=== PATIENT | female | born 1945 | race Caucasian/White ===

== ENCOUNTER 2016-07-19 05:37 | Outpatient (CLI) | payer MEDICARE, OTHER ==
[~2016-07-19] VITALS: Ht 154.9 cm; Wt 71.2 kg
[~2016-07-19 05:37] MED LIST: ACET-2267 PO; ACHD5005 PO; ALEN70TA47 PO; ALN10T PO; ASPI-892 PO; CALC-6 PO; CALC600T PO; CHOL5000 PO; CLPD75T PO; CPR500T PO; CYAN10006 PO; ERGO400C PO; ESTR0.5T VG; EZET1TAB44 PO; GABA-488 PO; INDO25CA PO; LEVO50TA6 PO; LVT.05T PO; MELO15TA39 PO; OMEG1CAP74 PO; PNT40TEC PO; SIMV40TA4 PO
--- OUTSIDE RECORDS SUMMARY | 2016-07-19 05:40 | XMS REPORT | Continuity of Care Document ---
Author Author [facility] Organization [facility] Address Unknown Phone Unavailable Care Team Providers Care Manager Home Name Role Phone PCP Unavailable Source Comments Some departments are not documenting in the electronic medical record. If you do not see the information that you expected, contact Release of Information in the Health Information Management department at [phone] for further assistance in locating additional records.[facility] Active Allergies and Adverse Reactions Not on File Current Medications Not on file Active Problems Not on file Social History Tobacco Use Types Packs/Day Years Used Date Never Assessed Plan of Care Health Maintenance Due Date Last Done Comments Physical (Comprehensive) 1952 Exam Pertussis Vaccine 1956 Tetanus Vaccine 1962 Breast Cancer Screening 1985 Colorectal Cancer 1995 Screening Shingles Vaccine 2005 Osteoporosis Screening 2010 Prevnar/Pneumovax (#1) 2010 Influenza Vaccine 02/15/2016 Results from Last 3 Months Not on file
[2016-07-19] MEDS ORDERED: VITA400T9 PO (10:09)
[2016-07-19] MEDS ORDERED: DIPH25CA79 PO (10:09)
[2016-07-19] MEDS ORDERED: GABA-490 PO (10:09)
[2016-07-19] MEDS ORDERED: CYCL10TA9 PO (10:13)
== END 2016-07-19 10:14 ==
LOC: PREOP 05:37
PROVIDERS: ATTEND Surgery Pediatric Surgery
DX: Z01.818 Encounter for other preprocedural examination (principal)

== ENCOUNTER 2016-07-24 09:45 | Day surgery (SDC) | payer MEDICARE, OTHER ==
[~2016-07-24] VITALS: Ht 154.9 cm; Wt 71.2 kg
[~2016-07-24 09:45] MED LIST changes: +CYCL10TA9 PO; +DIPH25CA79 PO; +GABA-490 PO; +VITA400T9 PO
--- OUTSIDE RECORDS SUMMARY | 2016-07-24 09:50 | XMS REPORT | Continuity of Care Document ---
Author Author [facility] Organization [facility] Address Unknown Phone Unavailable Care Team Providers Care Seed Sales Manager Name Role Phone PCP Unavailable Source Comments Some departments are not documenting in the electronic medical record. If you do not see the information that you expected, contact Release of Information in the Health Information Management department at [phone] for further assistance in locating additional records.[facility] Active Allergies and Adverse Reactions Not [...]
--- OUTSIDE RECORDS SUMMARY | 2016-07-24 09:50 | XMS REPORT | Continuity of Care Document ---
Author Author [facility] Organization [facility] Address Unknown Phone Unavailable Care Team Providers Care Script Girl Name Role Phone PCP Unavailable Source Comments Some departments are not documenting in the electronic medical record. If you do not see the information that you expected, contact Release of Information in the Health Information Management department at [phone] for further assistance in locating additional records.[facility] Active Allergies and Adverse Reactions Not [...]
[2016-07-24] MEDS ORDERED: LIDOCAINE JELLY 2% (XYLOCAINE) 5 ML TUBE MM PRN (10:00)
[2016-07-24] MEDS ORDERED: NALOXONE 0.4 MG/ML 1 ML (NARCAN) VIAL IVP PRN (10:00)
[2016-07-24] MEDS ORDERED: NS IV 500 ML 500 ML IV SCH (10:00)
[2016-07-24] MEDS ORDERED: FLUMAZENIL (ROMAZICON) 0.1 MG/ML 5 ML VIAL INJ PRN (10:00)
[2016-07-24] MEDS ORDERED: NS IV 500 ML 500 ML ONE (10:00)
[2016-07-24 10:22] VITALS: BP 133/74
--- NOTE | 2016-07-24 10:26 | Conscious Sedation/ASA ---
Conscious Sedation Pre-Proced Time Reviewed: 10:10 ASA Class: 2 Airway Mallampati Classification: ([place] appropriate class) I. II. III, IV Lungs Heart ASA score ASA 1: a normal healthy patient ASA 2: a patient with a mild systemic disease (mid diabetes, controlled hypertension, obesity ASA 3: a patient with a severe systemic disease that limits activity (angina , COPD, prior Myocardial infarction) ASA 4: a patient with an incapacitating disease that is a constant threat to life (CHF, renal failure) ASA 5: a moribund patient not expected to survive 24 hrs. (ruptured aneurysm) ASA 6: a declared brain patient whose organs are being harvested. For emergent operations, add the letter E after the classification Grade 2 Sedation Plan: Analgesia, Amnesia, Plan communicated to team members, Discussed options with patient/fam, Discussed risks with patient/fam Note The patient is an appropriate candidate to undergo the planned procedure, sedation, and anesthesia. The patient immediately re-assessed prior to indication. JOHNNY VALLEJO MD Jul 24, 2016 10:26 am
--- NOTE | 2016-07-24 10:27 | Progress Note-Pre Operative ---
Pre-Operative Progress Note H&P Reviewed The H&P was reviewed, patient examined and no changes noted. Date H&P Reviewed: Jul 24, 2016 Time H&P Reviewed: 10:10 Pre-Operative Diagnosis: screening colonoscopy JOHNNY VALLEJO MD Jul 24, 2016 10:27 am
[2016-07-24] MEDS ORDERED: morphine INJ 10 MG/ML 1ML (SYR OR VIAL) IV PRN (10:30)
[2016-07-24] MEDS ORDERED: ONDANSETRON 4 MG/2 ML (SDV) Z0FRAN IV PRN (10:30)
[2016-07-24] MEDS ORDERED: HYDROcodone/APAP 5 MG/325 MG (LORTAB) TAB PO PRN (10:30)
[2016-07-24] MEDS ORDERED: ACETAMINOPHEN 325 MG TABLET/CAPLET (TYLENOL) PO PRN (10:30)
[2016-07-24] MEDS ORDERED: fentaNYL INJECTION 100 MCG/2 ML AMP ONE ×2 (10:37→10:38)
[2016-07-24] MEDS ORDERED: MIDAZOLAM 2 MG/2 ML (VERSED) VIAL ONE ×3 (10:37)
[2016-07-24] MEDS ORDERED: LIDOCAINE JELLY 2% (XYLOCAINE) 5 ML TUBE ONE (10:38)
[2016-07-24] MEDS: fentaNYL INJECTION 100 MCG/2 ML AMP IVP PRN ×4 (11:05→11:30)
[2016-07-24] MEDS: MIDAZOLAM 2 MG/2 ML (VERSED) VIAL IVP PRN ×3 (11:07→11:24)
--- NOTE | 2016-07-24 11:49 | Progress Note-Post Operative ---
Post-Operative Progess Note Pre-Operative Diagnosis screening colonoscopy Post-Operative Diagnosis chronic stage 2 ext and int hemorrhoids, mild-moderate sigmoid diverticulosis. Post-Op Procedure Note Date of Procedure: Jul 24, 2016 Name of Procedure: Colonoscopy Anesthesia Type CS Estimated blood loss (mL): JOHNNY Navarro MD Jul 24, 2016 11:48 am
[2016-07-24 11:50] VITALS: BP 130/73
--- NOTE | 2016-07-24 11:50 | Discharge Inst-Surgical ---
D/C Lap Instructions-YONI Follow Up 10 years Activity as tolerated High Fiber Diet 25g or more per day Avoid Alcohol, Caffeine, Spicy Dooms and Acid foods. Drink 64 fluid oz or more of fluids per day. Symptoms to Report: Fever over 101 degree F, Nausea/Vomiting If any problems/questions: Contact your physician or go to Emergency Room JOHNNY VALLEJO MD Jul 24, 2016 11:50 am
[2016-07-24 12:20] VITALS: BP 112/64
[2016-07-24 12:45] VITALS: BP 112/64
--- NOTE | 2016-07-25 12:42 | OPERATIVE REPORT ---
PROCEDURE PHYSICIAN: JOHNNY CURRAN DATE OF PROCEDURE: 07/24/2016 ATTENDING PRIMARY CARE PHYSICIAN: Dr. Rodriguez PREOPERATIVE DIAGNOSIS: Screening colonoscopy. POSTOPERATIVE DIAGNOSES: 1. Chronic, stage II external and internal hemorrhoids. 2. Mild to moderate sigmoid diverticulosis. PROCEDURE: Colonoscopy. SURGEON: Dr. Curran. ANESTHESIA: Conscious sedation. ESTIMATED BLOOD LOSS: Minimal. FINDINGS: 1. Chronic, stage II external and internal hemorrhoids, not actively edematous or inflamed and no bleeding. 2. There was a mild to moderate sigmoid diverticulosis and no mucosal inflammatory changes to indicate any active diverticulitis. 3. The remainder of the colon was normal. There were no polyps or any neoplasms identified. DISPOSITION: The patient tolerated the procedure well. Ms. Sabina Bustamante is a 71-year-old female in need of a screening colonoscopy. She reports her last colonoscopy was around 2004 which was found to have mild diverticulosis; however, she does not remember any other abnormalities. Upon further questioning, she does report a long-standing history of constipation, however, does not report any issues with sharp left lower abdominal quadrant pain. She also does not report any red blood per rectum or any dark tarry stools. She does report a remote family history of colon cancer with her paternal grandfather having the disease. She has also been seen recently for recurrent cystitis. PROCEDURE: The patient was brought to the endoscopy suite, laid in left lateral decubitus position. After adequate IV pain and sedative medications and conscious sedation anesthesia, a digital rectal examination was performed. Chronic mild stage II external and internal hemorrhoids were identified, which were not actively edematous or inflamed and no bleeding. Normal sphincter tone was felt and there were no palpable masses. The endoscope was then intubated into the anus and the rectum gently insufflated. The endoscope was then advanced through the valves of [place] the rectum with no polyps or any neoplasms identified. The endoscope was then advanced through the sigmoid colon where a mild to moderate sigmoid diverticulosis identified. There were no mucosal inflammatory changes to indicate any active diverticulitis. The endoscope was then advanced through the descending, transverse, and ascending colon to the cecum. These segments were normal. There were no polyps or any or any neoplasms identified throughout the colon or rectum. The endoscope was then slowly withdrawn while taking a second look and suctioning of residual air with no additional findings. The patient tolerated the procedure well. We will have her continue with medical management with a high fiber diet with least 25 to 30 grams of fiber per day, as well as at least 64 fluid ounces of water daily to promote soft stools on a daily basis. She does not need another colonoscopy for another 10 years; however, sooner if any problems arise. Job ID: [id number] Dictated Date: 07/24/2016 11:53:48 Labor Economist Date: 07/25/2016 12:35:53 / henry
== END 2016-07-24 12:45 | disposition home or self-care (01) ==
LOC: ENDO 09:45
PROVIDERS: ATTEND Surgery Pediatric Surgery
DX: Z12.11 Encounter for screening for malignant neoplasm of colon (principal); K57.90 Diverticulosis of intestine, part unspecified, without perforation or abscess without bleeding; K64.1 Second degree hemorrhoids; Z80.0 Family history of malignant neoplasm of digestive organs

== ENCOUNTER 2016-07-28 14:58 | Emergency (ER) | payer MEDICARE, OTHER ==
[~2016-07-28] VITALS: Ht 154.9 cm; Wt 71.2 kg
--- OUTSIDE RECORDS SUMMARY | 2016-07-28 15:03 | XMS REPORT | Continuity of Care Document ---
Author Author [facility] Organization [facility] Address Unknown Phone Unavailable Care Team Providers Care High Tension Tester Name Role Phone PCP Unavailable Source Comments Some departments are not documenting in the electronic medical record. If you do not see the information that you expected, contact Release of Information in the Health Information Management department at [phone] for further assistance in locating additional records.[facility] Active Allergies and Adverse Reactions Not [...]
[2016-07-28] MEDS ORDERED: HYDR-3812 (15:09)
[2016-07-28] MEDS ORDERED: PRD10T (15:09)
[2016-07-28] MEDS ORDERED: KETOROLAC 30 MG/ML VIAL IVP ONE (15:15)
[2016-07-28 15:32] LABS: BASOPHILS # (AUTO) 0.1 10^3/uL (0.0-0.1); BASOPHILS % (AUTO) 1 % (0-10); EOSINOPHILS # (AUTO) 0.3 10^3/uL (0.0-0.3); EOSINOPHILS % (AUTO) 3 % (0-10); LYMPHOCYTES # (AUTO) 3.3 X 10^3 (1.0-4.0); LYMPHOCYTES % (AUTO) 30 % (12-44); MEAN CORPUSCULAR HEMOGLOBIN 29 PG (25-34); MEAN CORPUSCULAR HGB CONC 33 G/DL (32-36); MEAN CORPUSCULAR VOLUME 88 FL (80-99); MEAN PLATELET VOLUME 10.3 FL (7.4-10.4); MONOCYTES # (AUTO) 0.9 X 10^3 (0.0-1.0); MONOCYTES % (AUTO) 8 % (0-12); NEUTROPHILS # (AUTO) 6.4 X 10^3 (1.8-7.8); NEUTROPHILS % (AUTO) 59 % (42-75); PLATELET COUNT 328 10^3/uL (130-400); RED BLOOD COUNT 5.17 10^6/uL (4.35-5.85); RED CELL DISTRIBUTION WIDTH 13.2 % (10.0-14.5); WHITE BLOOD COUNT 10.9 10^3/uL (4.3-11.0)
--- NOTE | 2016-07-28 15:40 | ED GU-Female ---
General Chief Complaint: Abdominal/GI Problems Stated Complaint: R SIDE PAIN, BY KIDNEYS Nursing Triage Note: Patient reports R flank/kidney pain. states was evaluated by PCP on the and was told it was skeletal problem. patient reports was given prednisone and lortab. patient reports pain hasn't improved and has a history of kidney stones. patient also reports having a colonoscopy on the of this month. patient denies n/v/d. Nursing Sepsis Screen: No Definite Risk Source: patient Exam Limitations: no limitations History of Present Illness Time seen by provider: 15:39 Initial Comments To ER with reports of right flank pain for about a week. She saw her primary care provider Dr. Monsalve on July 25 for this pain and was told it was likely degenerative disc disease. She was given hydrocodone and prednisone without improvement in symptoms. She does report that she passed a kidney stone on the right side about a month ago. She reports chills but no measured fevers. She denies nausea vomiting or diarrhea. Pain improves with cold application and worsens with heat application Timing/Duration: just prior to arrival Severity/Quality: moderate Location: unknown Radiation: none Prior Genitourinary Problems: none Associated Symptoms: denies symptoms nausea/vomiting Allergies and Home Medications Allergies Coded Allergies: mercury (elemental) (Verified Allergy, Unknown, ALLERGIC TO MERCURY EAR DROPS, 11/14/05) Home Medications Acetaminophen 500 Mg Tablet 500-1,000 MG PO Q4H PRN PRN PAIN (Reported) Aspirin 81 Mg Tabec 81 MG PO HS (Reported) Calcium Carbonate/Vitamin D3 1 Each Tablet 1 TAB PO HS (Reported) Cholecalciferol (Vitamin D3) 5,000 Unit Capsule 5,000 UNIT PO MONDAYS AND FRIDAYS (Reported) Cyclobenzaprine HCl 10 Mg Tablet 10 MG PO TID PRN PRN MUSCLE SPASMS (Reported) Diphenhydramine HCl 25 Mg Capsule 25 MG PO HS (Reported) Estradiol 0.5 Mg Tablet 0.5 MG VG WEEKLY ON FRIDAY (Reported) Gabapentin 400 Mg Capsule 800 MG PO TID PRN PRN nerve pain (Reported) take 2 (400mg) tab Hydrocodone/Acetaminophen 1 Each Tablet #60 (Reported) Levothyroxine Sodium 50 Mcg Tablet 50 MCG PO DAILY (Reported) Prednisone 10 Mg Tab #9 (Reported) Simvastatin 40 Mg Tablet 40 MG PO HS (Reported) Constitutional: see HPINo chills, diaphoresisNo fever EENTM: see HPI Respiratory: see HPINo cough Cardiovascular: no symptoms reported Genitourinary: see HPI dysuria flank pain Musculoskeletal: no symptoms reported Skin: no symptoms reported Psychiatric/Neurological: No Symptoms Reported Endocrine: No Symptoms Reported Past Psehgmz-Xjxshi-Wzryvz Hx Patient Social History Alcohol Use: Denies Use Recreational Drug Use: No Smoking Status: Never a Smoker Recent Foreign Travel: No Contact w/Someone Who Travel: No Recent Infectious Disease Expo: No Recent Hopitalizations: No Immunizations Up To Date Tetanus Booster (TDap): Less than 5yrs Date of Pneumonia Vaccine: Nov 15, 2013 Date of Influenza Vaccine: Mar 16, 2016 Seasonal Allergies Seasonal Allergies: Yes Surgeries HX Surgeries: Yes (bowel obstruction, bilat hip replaced, ) Surgeries: Abdominal, Appendectomy, Coronary Stent, Gallbladder, Joint Replacement, Tonsillectomy Respiratory Hx Respiratory Disorders: No Cardiovascular Hx Cardiac Disorders: Yes (stent x1) Cardiac Disorders: Coronary Artery Disease, High Cholesterol Neurological Hx Neurological Disorders: Yes Neurological Disorders: Neuropathy Reproductive System Hx Reproductive Disorders: No Sexually Transmitted Disease: No HIV/AIDS: No Female Reproductive Disorders: Denies Genitourinary Hx Genitourinary Disorders: Yes Genitourinary Disorders: Kidney Infection, Kidney Stones, UTI-Chronic Gastrointestinal Hx Gastrointestinal Disorders: Yes Gastrointestinal Disorders: Gastroesophageal Reflux, Diverticulosis Musculoskeletal Hx Musculoskeletal Disorders: Yes Musculoskeletal Disorders: Arthritis, Chronic Back Pain Endocrine Hx Endocrine Disorders: Yes Endocrine Disorders: Hypothyroidsim HEENT HX ENT Disorders: No HEENT Disorders: Cataract Cancer Hx Cancer: No Psychosocial Hx Psychiatric Problems: No Integumentary HX Skin/Integumentary Disorder: No Blood Transfusions Hx Blood Disorders: No Family Medical History Significant Family History: Heart Disease, Renal Disease Physical Exam Vital Signs Vital Sign - Last 12Hours 07/28/16 15:03 Temp 97.8 Pulse 81 Resp 18 B/P 146/83 Pulse Ox 95 O2 Delivery Room Air Capillary Refill : Less Than 3 Seconds General Appearance: WD/WN no apparent distress HEENT: PERRL/EOMI normal ENT inspection Neck: non-tender full range of motion Respiratory: no respiratory distress no accessory muscle use Gastrointestinal: normal bowel sounds non tender soft Extremities: normal range of motion non-tender Neurologic/Psychiatric: alert normal mood/affect oriented x 3 Skin: normal color warm/dry Progress/Results/Core Measures Results/Orders Lab Results Laboratory Tests Test 07/28/16 15:00 07/28/16 15:55 Range/Units Anion Gap 14 5-14 MMOL/L BUN/Creatinine Ratio 20 Basophils # (Auto) 0.1 0.0-0.1 10^3/uL Basophils (%) (Auto) 1 0-10 % Blood Urea Nitrogen 19 H 7-18 MG/DL Calcium Level 9.5 8.5-10.1 MG/DL Carbon Dioxide Level 23 21-32 MMOL/L Chloride Level 104 98-107 MMOL/L Creatinine 0.96 0.60-1.30 MG/DL Eosinophils # (Auto) 0.3 0.0-0.3 10^3/uL Eosinophils (%) (Auto) 3 0-10 % Estimat Glomerular Filtration Rate 57 Glucose Level 93 70-105 MG/DL Hematocrit 45 35-52 % Hemoglobin 14.8 11.5-16.0 G/DL Lymphocytes # (Auto) 3.3 1.0-4.0 X 10^3 Lymphocytes (%) (Auto) 30 12-44 % Mean Corpuscular Hemoglobin 29 25-34 PG Mean Corpuscular Hemoglobin Concent 33 32-36 G/DL Mean Corpuscular Volume 88 80-99 FL Mean Platelet Volume 10.3 7.4-10.4 FL Monocytes # (Auto) 0.9 0.0-1.0 X 10^3 Monocytes (%) (Auto) 8 0-12 % Neutrophils # (Auto) 6.4 1.8-7.8 X 10^3 Neutrophils (%) (Auto) 59 42-75 % Platelet Count 328 130-400 10^3/uL Potassium Level 3.5 L 3.6-5.0 MMOL/L Red Blood Count 5.17 4.35-5.85 10^6/uL Red Cell Distribution Width 13.2 10.0-14.5 % Sodium Level 141 135-145 MMOL/L White Blood Count 10.9 4.3-11.0 10^3/uL Urine Bacteria FEW H /HPF Urine Bilirubin NEGATIVE NEGATIVE Urine Casts NONE /LPF Urine Clarity SLIGHTLY CLOUDY Urine Color YELLOW Urine Crystals NONE /LPF Urine Culture Indicated YES Urine Glucose (UA) NEGATIVE NEGATIVE Urine Ketones NEGATIVE NEGATIVE Urine Leukocyte Esterase 3+ H NEGATIVE Urine Mucus NEGATIVE /LPF Urine Nitrite NEGATIVE NEGATIVE Urine Protein 1+ H NEGATIVE Urine RBC NONE /HPF Urine RBC (Auto) 3+ H NEGATIVE Urine Specific [place] 1.025 H 1.016-1.022 Urine Squamous Epithelial Cells 10-25 H /HPF Urine Urobilinogen NORMAL NORMAL MG/DL Urine WBC 5-10 H /HPF Urine pH 5 5-9 My Orders Orders-SHLOMO HANSEN APRN Ua Culture If Indicated (07/28/16 15:10) Cbc With Automated Diff (07/28/16 15:10) Basic Metabolic Panel (07/28/16 15:10) Ct Abd/Pelvis Wo(Kidney Stone) (07/28/16 15:10) Ketorolac Injection (Toradol Injection) (07/28/16 15:15) Urine Culture (07/28/16 15:55) Medications Given in ED Current Medications Medications Dose Ordered Sig/Coty Route Start Time Stop Time Status Last Admin Dose Admin Ketorolac Tromethamine 30 mg ONCE ONCE IVP 07/28/16 15:15 07/28/16 15:16 DC 07/28/16 15:21 30 MG Vital Signs/I&O Vital Sign - Last 12Hours 07/28/16 15:03 Temp 97.8 Pulse 81 Resp 18 B/P 146/83 Pulse Ox 95 O2 Delivery Room Air Blood Pressure Mean: 104 Diagnostic Imaging Diagonstic Imaging: CT Comments NAME: PEDRO CORRAL [facility] REC#: [id number] PT STATUS: REG ER : 1945 PHYSICIAN: SHLOMO HANSEN APRN ADMIT DATE: 07/28/16/ER Draft Date of Exam:07/28/16 CT ABD/PELVIS WO(KIDNEY STONE) EXAMINATION: CT abdomen and pelvis without contrast, 07/28/2016. TECHNIQUE: Multiple contiguous axial images were obtained through the abdomen and pelvis without the use of intravenous contrast. INDICATION: Right flank pain, history of stones, hematuria for a month. COMPARISON: 11/15/2014. FINDINGS: No acute process is seen within the visualized lung bases. The osseous structures demonstrate chronic degenerative findings. Postoperative change noted in both hips. The streak artifact from the hip prostheses causes marked limitation in evaluation of the pelvis, and a distal ureteral stone would be difficult to completely exclude. No nephrolithiasis is seen in either kidney with no hydronephrosis. Visualized ureters on both sides demonstrate no evidence for stones; however, the distal ureters are not well seen. There are findings of constipation. Diverticular disease also noted in the sigmoid colon. No free air or fluid seen in the abdomen. No free fluid seen in the visualized aspects of the pelvis. There is postoperative change in the right lower quadrant perhaps due to previous appendectomy. Appendix is not seen. There is no inflammatory change in the right lower quadrant. There is atherosclerotic disease. IMPRESSION: 1. Incidental findings as discussed above with no acute process visualized. The distal ureters, however, cannot be seen; see above discussion. No hydronephrosis, however, is appreciated. If the hematuria persists, followup imaging of the kidneys with a dedicated kidney protocol CT with and without contrast would be recommended on a nonemergent basis. Dictated on workstation # [id number] Dict: 07/28/16 1536 Trans: 07/28/16 [id number] [id number] Interpreted by: EKATERINA MEDRANO MD Electronically signed by: Departure Impression Impression: Primary Impression: Right flank pain Additional Impression: Urinary tract infection Disposition: 01 HOME, SELF-CARE Condition: Stable Departure-Patient Inst. Decision time for Depature: 16:16 Referrals: CAITLYN MONSALVE DO (PCP/Family) Primary Care Physician Patient Instructions: Urinary Tract Infection, Adult (DC) Add. Discharge Instructions: 1. Antibiotic as directed 2. Return to ER for any worsening 3. See Dr. Monsalve later this week All discharge instructions reviewed with patient and/or family. Voiced understanding. Scripts Ciprofloxacin HCl (Cipro)500 Mg [id number] Mg PO BID #10 TAB Prov:SHLOMO HANSEN APRN 07/28/16 Copy Copies To 1: CAITLYN MONSALVE PETER J APRN Jul 28, 2016 15:40
[2016-07-28 15:48] LABS: CALCIUM 9.5 MG/DL (8.5-10.1); CREATININE SERUM 0.96 MG/DL (0.60-1.30); POTASSIUM 3.5 MMOL/L (3.6-5.0)
--- NOTE | 2016-07-28 15:48 | Diagnostic Imaging Report ---
EXAMINATION: CT abdomen and pelvis without contrast, 07/28/2016. TECHNIQUE: Multiple contiguous axial images were obtained through the abdomen and pelvis without the use of intravenous contrast. INDICATION: Right flank pain, history of stones, hematuria for a month. COMPARISON: 11/15/2014. FINDINGS: No acute process is seen within the visualized lung bases. The osseous structures demonstrate chronic degenerative findings. Postoperative change noted in both hips. The streak artifact from the hip prostheses causes marked limitation in evaluation of the pelvis, and a distal ureteral stone would be difficult to completely exclude. No nephrolithiasis is seen in either kidney with no hydronephrosis. Visualized ureters on both sides demonstrate no evidence for stones; however, the distal ureters are not well seen. There are findings of constipation. Diverticular disease also noted in the sigmoid colon. No free air or fluid seen in the abdomen. No free fluid seen in the visualized aspects of the pelvis. There is postoperative change in the right lower quadrant perhaps due to previous appendectomy. Appendix is not seen. There is no inflammatory change in the right lower quadrant. There is atherosclerotic disease. IMPRESSION: 1. Incidental findings as discussed above with no acute process visualized. The distal ureters, however, cannot be seen; see above discussion. No hydronephrosis, however, is appreciated. If the hematuria persists, followup imaging of the kidneys with a dedicated kidney protocol CT with and without contrast would be recommended on a nonemergent basis. Dictated by: Dictated on workstation # [id number]
[2016-07-28 16:05] LABS: BILIRUBIN,URINE NEGATIVE (NEGATIVE); KETONES,URINE NEGATIVE (NEGATIVE); LEUKOCYTE ESTERASE ,URINE 3+ (NEGATIVE); NITRITE,URINE NEGATIVE (NEGATIVE); PH,URINE 5 (5-9); PROTEIN,URINE 1+ (NEGATIVE); UROBILINOGEN,URINE NORMAL (NORMAL)
[2016-07-28] MEDS ORDERED: CIPR-225 PO (16:17)
[2016-07-28] MEDS ORDERED: fentaNYL INJECTION 100 MCG/2 ML AMP IVP ONE (16:30)
[2016-07-28 16:43] VITALS: BP 139/96
== END 2016-07-28 16:42 | disposition home or self-care (01) ==
LOC: EDUNIT# 14:58 → ER 14:59
DX: N39.0 Urinary tract infection, site not specified (principal); I25.10 Atherosclerotic heart disease of native coronary artery without angina pectoris; K57.30 Diverticulosis of large intestine without perforation or abscess without bleeding; Z79.82 Long term (current) use of aspirin; Z79.899 Other long term (current) drug therapy; Z95.5 Presence of coronary angioplasty implant and graft
CPT/HCPCS: 36415; 74176; 80048; 81000; 85025; 87077; 87088; 87186; 96374; 96375; 99282

== ENCOUNTER → 2017-06-26 | Outpatient (CLI) | payer MEDICARE, OTHER ==
[~2017-06-26] MED LIST changes: +ACHD5005; +CIPR-225 PO; +PRD10T
--- NOTE | 2017-06-26 15:40 | Diagnostic Imaging Report ---
EXAMINATION: Thoracic spine. INDICATION: Injury, back pain. AP and lateral views were obtained. FINDINGS: The AP view shows mild levoscoliosis of the lower thoracic spine and mild dextroscoliosis of the thoracolumbar junction. This appearance is similar to the prior chest exam of 09/27/2015. The lateral view shows the vertebral body heights to be similar to the prior chest exam of 10/02/2014. There is no fracture or acute bony abnormality evident. There is mild degenerative disc disease throughout the thoracic spine. There is no sign of a paraspinal mass. IMPRESSION: 1. There is no evidence for an acute bony abnormality. 2. If clinical concern regarding an occult fracture persists and further imaging is desired, then MRI would be recommended. Dictated by: Dictated on workstation # [id number]
== END ==
LOC: RAD 14:55
PROVIDERS: ATTEND Internal Medicine
DX: M54.6 Pain in thoracic spine (principal)
CPT/HCPCS: 72070

== ENCOUNTER → 2018-03-31 | Outpatient (CLI) | payer MEDICARE, OTHER ==
[~2018-03-31] MED LIST changes: -INDO25CA PO; +INDO25CA15 PO
--- NOTE | 2018-03-31 13:58 | Diagnostic Imaging Report ---
INDICATION: Routine screening. COMPARISON: Comparison is made with prior mammograms from 12/22/2014 and 09/07/2013. TECHNIQUE: 2D and 3D bilateral screening mammography was performed with computer-aided detection (CAD) system. FINDINGS: Both breasts are heterogeneously dense, limiting the sensitivity of mammography. There are scattered benign-appearing calcifications bilaterally. No mass or malignant-appearing microcalcifications are seen. The axillae are unremarkable. IMPRESSION: No mammographic features suspicious for malignancy are identified. ACR BI-RADS Category 2: Benign findings. Result letter will be mailed to the patient. Note: At least 10% of breast cancer is not imaged by mammography. Dictated by: Dictated on workstation # [id number]
== END ==
LOC: RAD 09:13
PROVIDERS: ATTEND Internal Medicine
DX: Z12.31 Encounter for screening mammogram for malignant neoplasm of breast (principal)
CPT/HCPCS: 77067

== ENCOUNTER → 2018-05-14 | Outpatient (CLI) | payer MEDICARE, OTHER ==
--- NOTE | 2018-05-14 16:31 | Diagnostic Imaging Report ---
Fall from ladder with right hip pain. AP and frog-leg view of the right hip are obtained. Total right hip arthroplasty is present. There is no evidence of fracture or malalignment. No abnormal lytic or sclerotic focus is seen. Impression: No acute abnormality is detected. Dictated by: Dictated on workstation # [id number]
== END ==
LOC: RAD 13:55
PROVIDERS: ATTEND Internal Medicine
DX: M25.551 Pain in right hip (principal); W11.XXXA Fall on and from ladder, initial encounter
CPT/HCPCS: 73502

== ENCOUNTER → 2018-07-14 | Outpatient (CLI) | payer MEDICARE, OTHER ==
[~2018-07-14] MED LIST changes: -ALEN70TA47 PO; +ALEN70TA5 PO
== END ==
LOC: CARD 08:38
PROVIDERS: ATTEND Physician Assistant
DX: I25.10 Atherosclerotic heart disease of native coronary artery without angina pectoris (principal); I65.29 Occlusion and stenosis of unspecified carotid artery; I10 Essential (primary) hypertension; E78.5 Hyperlipidemia, unspecified; I07.1 Rheumatic tricuspid insufficiency
CPT/HCPCS: 93306

== ENCOUNTER → 2018-07-15 | Outpatient (CLI) | payer MEDICARE, OTHER ==
[~2018-07-15] VITALS: Ht 154.9 cm; Wt 69.4 kg
[~2018-07-15] MED LIST changes: +ALBU18HF2 INH; +ASPI-983 PO; +CATHETER FLUSH 10 ML SYR IV PRN; +CEFD300C3 PO; +DICL75TA2 PO; +GUAI5SYR PO; +HYDR115S2 PO; +PRED10TA22 PO
[2018-07-15 09:20] VITALS: BP 125/87
[2018-07-15 09:28] VITALS: BP 191/81
--- NOTE | 2018-07-15 15:04 | STRESS TEST ---
DATE OF SERVICE: 07/15/2018 LEXISCAN MYOVIEW AND EXERCISE MYOVIEW STRESS TEST REPORT Baseline heart rate is 74, baseline blood pressure 159/74. Baseline EKG is sinus rhythm with no ischemic changes. In summary, the patient was injected with 11.0 mCi of technetium-99 Myoview and the resting images were obtained. Then, the patient started exercising with a baseline heart rate, blood pressure and EKG mentioned above. The patient was able to exercise for 6 minutes 30 seconds on standard Aryan protocol. With peak exercise level, EKG was showing [address] depression in II, III, aVF and V4, V5, V6. Blood pressure was 161/81. During recovery, heart rate and blood pressure returned to baseline. EKG returned to baseline. The resting and stress images were reviewed and compared in the short axis, horizontal long axis, and vertical long axis views. Review of the images showed good radiotracer uptake with no significant ischemia or infarction. SSS is 0. TID value 1.02. On the gated images, the left ventricle appeared to be normal size with normal contractility. Calculated ejection fraction 87%. CONCLUSION: 1. Good exercise tolerance, a total of 6 minutes 30 seconds on standard Aryan protocol, total of 7.9 METS achieving 81% of maximum expected heart rate. 2. Hypertensive response to exercise, returned to baseline during recovery. Peak blood pressure 191/81. 3. Minimal nondiagnostic EKG changes with exercise returned to baseline during recovery. 4. No ischemia or infarction on SPECT images. 5. Normal left ventricular size with normal contractility. Calculated ejection fraction 87%. Job ID: [id number] DocumentID: [id number] Dictated Date: 07/15/2018 14:25:11 Chip Person Date: 07/15/2018 15:03:26 Dictated By: AMBER ESCOBAR MD
== END ==
LOC: CARD 06:53
PROVIDERS: ATTEND Physician Assistant
DX: I25.10 Atherosclerotic heart disease of native coronary artery without angina pectoris (principal); I10 Essential (primary) hypertension; E78.5 Hyperlipidemia, unspecified
CPT/HCPCS: 78452; 93017

== ENCOUNTER 2018-07-16 16:00 | Observation (INO) | payer MEDICARE, OTHER ==
[~2018-07-16] VITALS: Ht 154.9 cm; Wt 69.4 kg
[~2018-07-16 16:00] MED LIST changes: -ALBU18HF2 INH; -ASPI-983 PO; -CATHETER FLUSH 10 ML SYR IV PRN; -CEFD300C3 PO; -DICL75TA2 PO; -GUAI5SYR PO; -HYDR115S2 PO; -PRED10TA22 PO
--- NOTE | 2018-07-16 16:00 | NUR ---
PEDRO CORRAL admitted to room 430-1, with an admitting diagnosis of PNA, on 07/16/[address] Rodriguez office, accompanied by .PEDRO CORRAL introduced to surroundings, call light, bed controls, phone, TV, temperature control, lights, meal times, smoking policy, visitor policy, side rail policy, bathrooms and showers. Patient Rights given to patient in the handbook. PEDRO CORRAL verbalizes understanding that [facility] is not responsible for the loss or damage to any personal effects or valuables that are kept in the patients posession during their hospitalization. The following Patient Care Plans and discharge were discussed with the patient and family. PEDRO CORRAL verbalizes understanding of Interdisciplinary Patient Education.
[2018-07-16] MEDS ORDERED: NS IV 1000 ML 1,000 ML IV SCH (16:22)
[2018-07-16 16:25] VITALS: BP 125/72
[2018-07-16] MEDS ORDERED: AZITHROMYCIN INJECTION 500 MG in NS (IVPB) 250 ML IV SCH (16:30)
[2018-07-16] MEDS ORDERED: RT-ALBUTEROL SULF 2.5 MG/3 ML PRE-MIX VIAL ONE (16:57)
--- OUTSIDE RECORDS SUMMARY | 2018-07-16 16:59 | XMS REPORT ---
Author Author Marianna Fraser Organization [facility] Address [address] [place], [place] [id number] Care Team Providers Care Irrigation Foreman Name Role Phone Marianna Fraser PCP Unavailable Allergies and Adverse Reactions Name Reaction Notes Mercury Plan of Treatment Planned Activity Comments Planned Date Planned Time Plan/Goal Culture + susceptibility 08/13/2016 12:00 AM Medications Not available. Problem List Not available. Vital Signs Date Time BP-Sys(mm[Hg] BP-Jaky(mm[Hg]) HR(bpm) RR(rpm) Temp WT HT HC BMI BSA BMI Percentile O2 Sat(%) 08/13/2016 10:39:00 AM 108 mmHg 78 mmHg 82 bpm 18 rpm 97.1 F 148 lbs 61 in 27.96 kg/m2 1.70 m2 94 % Social History Name Description Comments Tobacco Never smoker Alcohol Use - Rare Caffeine Former drinks decaf Minimal Amount of Exercise (Once weekly or less) History of Procedures Date Ordered Description Order Status 08/13/2016 2:23 PM URINALYSIS AUTO W/O SCOPE Reviewed Results Summary Data and Description Results 08/13/2016 2:23 PM Clarity Ur CLEAR Color Ur -- Glucose Ur-sCnc -VE Bilirub Ur Ql Strip -VE Ketones Ur Ql Strip -VE Sp Gr Ur Qn 1015 Hgb Ur Ql Strip -VE pH Ur- LsCnc 6.0 Prot Ur Ql Strip -VE Urobilinogen Ur-mCnc -VE Nitrite Ur Ql Strip -VE WBC Est Ur Ql Strip ++ History Of Immunizations Not available. History of Past Illness Name Date of Onset Comments Recurrent UTI Aug 13 2016 11:54AM Urinary tract infection, site not specified Aug 13 2016 10:41AM Low back pain Aug 13 2016 10:41AM Payers Insurance Name Company Name Plan Name Plan Number Policy Number Policy Group Number Start Date Medicare Part B Medicare Of [place] [id number] N/A [employer] [id number] N/A History of Encounters Visit Date Visit Type Provider 08/13/2016 Office visit Marianna Fraser MD 10/07/2011 [facility] Jaspreet Dorsey MD
--- OUTSIDE RECORDS SUMMARY | 2018-07-16 16:59 | XMS REPORT | CCD ---
Author Author KLAUDIA LAMA Organization Unknown Address [address] [place] [address] Care Team Providers Care Lvn Name Role Phone Marianna ARRIOLA MD Attphys Allergies Allergy Code Allergy Type Reaction Status MERCURY 6769 Drug allergy Active Active Medications Unknown or Not Available. Problems Problem Code Start Date Resolved Date Status LEFT HIP PAIN 85258 Active OSTEOARTHRITIS OF LEFT HIP 835915951 Active STATUS POST THR (TOTAL HIP REPLACEMENT) V4364 Active Procedures Procedure Code Procedure Type Date Cystourethroscopy (separate procedure) 81665 CPT 2016 Results Unknown or Not Available. Function Status Unknown or Not Available. History of Immunizations Unknown or Not Available. Plan of Treatment Unknown or Not Available. Social History Smoking Status Code Start Date End Date Never smoker [id number] Vital Signs Unknown or Not Available. Function Status Unknown or Not Available. Goals Unknown or Not Available. ASSESSMENTS Unknown or Not Available. Health Concerns Section Unknown or Not Available.
--- OUTSIDE RECORDS SUMMARY | 2018-07-16 16:59 | XMS REPORT | Clinical Summary ---
Author Author [facility] Organization [facility] Address Unknown Phone Unavailable Care Team Providers Care Logistics Team Lead Name Role Phone PCP Unavailable Source Comments Some departments are not documenting in the electronic medical record. If you do not see the information that you expected, contact Release of Information in the Health Information Management department at [phone] for further assistance in locating additional records.[facility] Allergies Not on File Medications Not on file Active Problems Not on file Social History Date Tobacco Use Types Packs/Day Years Used Never Assessed Sex Assigned at Date Recorded Not on file Industry Job Start Date Occupation Not on file Not on file Not on file Travel End Travel History Travel Start No recent travel history available. Last Filed Vital Signs Not on file Plan of Treatment Health Maintenance Due Date Last Done Comments HEPATITIS C SCREENING 1945 PHYSICAL (COMPREHENSIVE) 1952 EXAM DTAP/TDAP VACCINES (1 - 1963 Tdap) BREAST CANCER SCREENING 1985 COLORECTAL CANCER 1995 SCREENING SHINGLES RECOMBINANT 1995 VACCINE (1 of 2) OSTEOPOROSIS 2010 SCREENING/MONITORING PNEUMONIA (PCV13/PPSV23) 2010 VACCINES (1 of 2 - PCV13) INFLUENZA VACCINE 01/14/2018 Results Not on filefrom Last 3 Months Advance Directives Patient has advance care planning documents on file. For more information, please contact: [facility] [address] [place] [address]
--- OUTSIDE RECORDS SUMMARY | 2018-07-16 17:01 | XMS REPORT | Clinical Summary ---
Author Author User, [employer] Organization [facility] Physician [place] Address Unknown Phone Unavailable Allergies, Adverse Reactions, Alerts Allergy Name Reaction Description Start Date Severity Status Provider ULTRAM rash Critical Active Kimberly Rodriguez MERCURY EAR DROPS Critical Active Kimberly Rodriguez Conditions or Problems Problem Name Problem Code Onset Date Status Entry Date Provider Comment Standard Description Annotate CORONARY ARTERY DISEASE 414.00 Resolved Kimberly Rodriguez Coronary atherosclerosis of unspecified type of vessel, [place] or graft OSTEOPENIA 733.90 Active Kimberly Rodriguez Disorder of bone and cartilage, unspecified GROIN PAIN 789.09 Resolved Kimberly Rodriguez Abdominal pain, other specified site; multiple sites ABDOMINAL PAIN, RIGHT LOWER QUADRANT 789.03 Resolved Kimberly Rodriguez Abdominal pain, right lower quadrant BRONCHITIS 490 Resolved Kimberly Rodriguez Bronchitis, not specified as acute or chronic COUGH 786.2 Resolved Kimberly Rodriguez Cough OSTEOPOROSIS NEC 733.09 Resolved Kimberly Rodriguez Other osteoporosis URINARY FREQUENCY 788.41 Resolved Kimberly Tigist Rodriguez Urinary frequency CHEST PAIN 786.5 Resolved Kimberly Rodriguez Chest pain CONTUSION, LEFT CHEST WALL 922.1 Resolved Kimberly Rodriguez Contusion of chest wall DISORDER, BREAST NEC 611.8 Resolved Kimberly Rodriguez Other specified disorders of breast left INSOMNIA 780.52 Resolved Kimberly Rodriguez Insomnia, unspecified SINUSITIS 473.9 Resolved Kimberly Rodriguez Unspecified sinusitis (chronic) FEVER 780.6 Resolved Kimberly Rodriguez Fever and other physiologic disturbances of temperature regulation HIP PAIN 719.45 Resolved Kimberly Rodriguez Pain in joint involving pelvic region and thigh EDEMA LEG 782.3 Resolved Kimberly Rodriguez Edema FLANK PAIN, RIGHT 789.09 Resolved Kimberly Rodriguez Abdominal pain, other specified site; multiple sites ARM PAIN, LEFT 729.5 Resolved Kimberly Rodriguez Pain in limb ABDOMINAL PAIN, EPIGASTRIC 789.06 Resolved Kimberly Rodriguez Abdominal pain, epigastric PUD 533.90 Active Kimberly Rodriguez Peptic ulcer of unspecified site, unspecified as acute or chronic, without mention of hemorrhage or perforation, without mention of obstruction DISEASE, PANCREAS NOS 577.9 Resolved Kimberly Rodriguez Unspecified disease of pancreas PANCREATITIS, CHRONIC 577.1 Resolved Kimberly Rodriguez Chronic pancreatitis SINUSITIS, SPHENOIDAL, ACUTE 461.3 Resolved Kimberly oRdriguez Acute sphenoidal sinusitis HYPERGLYCEMIA, MILD 790.6 Resolved Kimberly Rodriguez Other abnormal blood chemistry HYPOTHYROIDISM, PRIMARY 244.9 Active Kimberly Rodriguez Unspecified hypothyroidism URINARY TRACT INFECTION (UTI) 599.0 Resolved Kimberly Rodriguez Urinary tract infection, site not specified HYPERTRIGLYCERIDEMIA 272.1 Active Kimberly Rodriguez Pure hyperglyceridemia DYSPNEA 786.09 Resolved Kimberly Rodriguez Other dyspnea and respiratory abnormality CYANOSIS 782.5 Resolved Kimberly Rodriguez Cyanosis CORONARY ATHEROSCLEROSIS, [place] VESSEL 414.01 Active Kimberly Rodriguez Coronary atherosclerosis of [place] coronary artery SHORTNESS OF BREATH 786.05 Resolved Kimberly Rodriguez Shortness of breath SINUSITIS, SPHENOIDAL, ACUTE 461.3 Resolved Kimberly Rodriguez Acute sphenoidal sinusitis ACUTE PANCREATITIS 577.0 Resolved Kimberly Rodriguez Acute pancreatitis ABDOMINAL PAIN, EPIGASTRIC 789.06 Resolved Kimberly Rodriguez Abdominal pain, epigastric NAUSEA 787.02 Resolved Kimberly Rodriguez Nausea alone NAUSEA AND VOMITING 787.01 Resolved Kimberly Rodriguez Nausea with vomiting HEMATURIA UNSPECIFIED 599.70 Resolved Kimberly Rodriguez Hematuria, unspecified FLANK PAIN, LEFT 789.09 Resolved Kimberly Rodriguez Abdominal pain, other specified site; multiple sites UTI 599.0 Resolved Kimberly Rodriguez Urinary tract infection, site not specified GASTRITIS 535.5 Resolved Kimberly Rodriguez Unspecified gastritis and gastroduodenitis CHEST PAIN, ATYPICAL 786.59 Resolved Kimberly Rodriguez Other chest pain EROSIVE GASTRITIS 535.40 Resolved Kimberly Rodriguez Other specified gastritis, without mention of hemorrhage BRONCHITIS 490 Resolved Kimberly Rodriguez Bronchitis, not specified as acute or chronic HIP PAIN 719.45 Active Kimberly Rodriguez Pain in joint involving pelvic region and thigh SHOULDER PAIN 719.41 Resolved Kimberly Rodriguez Pain in joint involving shoulder region OSTEOARTHRITIS 715.90 Active Kimberly Rodriguez Osteoarthrosis, unspecified whether generalized or localized, involving unspecified site ECZEMA 692.9 Resolved Kimberly Rodriguez Contact dermatitis and other eczema, unspecified cause VACCINE AGAINST STREPTOCOCCUS PNEUMONIAE V03.82 Inactive Kimberly Rodriguez Need for prophylactic vaccination against Streptococcus pneumoniae [pneumococcus] HYPERCHOLESTEROLEMIA 272.0 Active Kimberly Rodriguez Pure hypercholesterolemia ABDOMINAL PAIN, GENERALIZED 789.07 Inactive Kimberly Rodriguez Abdominal pain, generalized URINARY FREQUENCY 788.41 Resolved Kimberly Rodriguez Urinary frequency BREAST PAIN, BILATERAL 611.71 Resolved Kimberly Rodriguez Mastodynia PANCREATITIS, ACUTE 577.0 Resolved Kimberly Rodriguez Acute pancreatitis UTI 599.0 Resolved Kimberly Rodriguez Urinary tract infection, site not specified BRONCHITIS, ACUTE 466.0 Active Kimberly Rodriguez Acute bronchitis Medication List Medication Instructions Start Date Stop Date Generic Name NDC Status Provider Patient Instruction PREDNISONE 10 MG TAB 4 po at one time once daily for 2 days then 2 po at one time once daily for 5 days PREDNISONE [id number] No Longer Active Ching Clark PYRIDIUM 200 MG TAB 1 PO TID prn urinary urgency PHENAZOPYRIDINE HCL 11750498728 No Longer Active Kimberly Rodriguez ADVAIR DISKUS 100-50 MCG/DOSE MISC 1 puff BID FLUTICASONE-SALMETEROL 01289491376 No Longer Active Kimberly Rodriguez ROBITUSSIN A-C 10-100 MG/5ML SYRUP 1 teaspoon PO Q 4-6 hr prn ROBITUSSIN A-C 10-100 MG/5ML SYRUP No Longer Active Kimberly Tigist Rodriguez TESSALON PERLES 100 MG CAPS 1 PO TID prn cough BENZONATATE 99259353946 No Longer Active Kimberly Tigist Rodriguez CEFDINIR 300 MG CAPS 1 PO BID CEFDINIR 03730268493 No Longer Active Kimberly Tigist Rodriguez PROTONIX 40 MG TBEC 1 PO daily PANTOPRAZOLE SODIUM 78337612278 Active Kimberly Tigist Rodriguez PYRIDIUM 200 MG TAB 1 PO TID prn urinary urgency PHENAZOPYRIDINE HCL 15462490569 No Longer Active Eda [place] BACTRIM DS 800-160 MG TAB 1 PO BID TRIMETHOPRIM- SULFAMETHOXAZOLE 52622664599 No Longer Active Kimberly Tigist Rodriguez FISH OIL 1000 MG CAPS 1 PO daily OMEGA-3 FATTY ACIDS 97315474256 Active Kimberly Tigist Rodriguez PLAVIX 75 MG TABS 1 po daily CLOPIDOGREL BISULFATE 21201222082 No Longer Active Kimberly Tigist Rodriguez CIPRO 500 MG TAB 1 PO BID CIPROFLOXACIN HCL 07178913388 No Longer Active Kimberly Tigist Rodriguez HYDROCODONE-ACETAMINOPHEN 5-325 MG TABS 1-2 PO Q4-6 hrs prn pain HYDROCODONE-ACETAMINOPHEN 69680137957 Active Kimberly Tigist Rodriguez FISH OIL 1000 MG CAPS 3 po daily OMEGA-3 FATTY ACIDS 95417362071 Active Kimberly Tigist Rodriguez AMBIEN 10 MG TAB 1 PO QHS prn ZOLPIDEM TARTRATE 45224738901 No Longer Active Kimberly Tigist Rodriguez LORTAB 5 5-500 MG TABS 1 PO Q6hrs prn ACETAMINOPHEN- HYDROCODONE 70239252547 No Longer Active Kimberly Tigist Rodriguez BENADRYL 25 MG CAP 1-2 PO prn at night DIPHENHYDRAMINE HCL 86509163959 No Longer Active Kimberly Tigist Rodriguez KENALOG 0.1 % CREA apply to affected areas BID TRIAMCINOLONE ACETONIDE No Longer Active Kimberly Tigist Rodriguez MOBIC 15 MG TABS 1 PO daily MELOXICAM 54104698235 Active Kimberly Tigist Rodriguez DIALYVITE VITAMIN D 5000 CAPS 1 PO twice weekly. CHOLECALCIFEROL CAPS 39135671481 Active Kimberly Tigist Rodriguez TESSALON 200 MG CAPS 1 PO TID prn cough BENZONATATE 15369565900 No Longer Active Kimberly Tigist Rodriguez BIAXIN 500 MG TAB 1 PO BID CLARITHROMYCIN 38531936421 No Longer Active Kimberly Tigist Rodriguez ALPRAZOLAM 0.5 MG TABS 1 PO QID prn ALPRAZOLAM 82567910241 Active Kimberly Tigist Rodriguez CARAFATE 1 GM TABS 1 PO 30 minutes before meals and at bedtime SUCRALFATE 21717103579 Active Kimberly Tigist Rodriguez KENALOG 0.1 % CREA apply to affected areas BID TRIAMCINOLONE ACETONIDE No Longer Active Kimberly Tigist Rodriguez DICLOFENAC SODIUM 50 MG TBEC 1 po BID DICLOFENAC SODIUM 18845900667 No Longer Active Kimberly Tigist Rodriguez GNP MELATONIN 3 MG TABS 1 po QHS MELATONIN 39790649039 No Longer Active Kimberly Tigist Rodriguez AUGMENTIN 500-125 MG TAB 1 PO BID AMOXICILLIN-POT CLAVULANATE 59697311391 No Longer Active Andrés Sher LEVAQUIN 500 MG TAB 1 PO QD LEVOFLOXACIN 63647589554 No Longer Active Kimberly Tigist Rodriguez FLORENCE 180 MG TABS 1 PO BID FEXOFENADINE HCL 36240781332 No Longer Active Kimberlyana Rodriguez ADVAIR DISKUS 100-50 MCG/DOSE MISC 1 puff BID FLUTICASONE-SALMETEROL 22918044008 No Longer Active Kimberly Tigist Rodriguez PROAIR HFA 108 (90 BASE) MCG/ACT AERS 2 puff Q4 hrs prn wheezing ALBUTEROL SULFATE 10771071628 No Longer Active Kimberly Tigist Rodriguez ULTRAM 50 MG TAB 1 PO q 6hrs prn TRAMADOL HCL 38582983806 No Longer Active Kimberly Tigist Rodriguez ZOCOR 40 MG TAB I PO daily SIMVASTATIN 87107724196 Active Ching Amber ZOSTAVAX 28466 UNT/0.65ML SOLR 1 injection once to prevent Shingles ZOSTER VACCINE LIVE 85122384332 No Longer Active Kimberly ABRAHAM ODT 4 MG TBDP 1 dissolved in mouth Q6hrs prn ONDANSETRON 19861739352 No Longer Active Ching Clark DARVOCET-N 100 100-650 MG TAB 1 PO Q4hrs prn pain PROPOXYPHENE N-APAP 70903749412 No Longer Active Kimberly STOCKTON'Nicole NASAL SPRAY (DEXAMETHASONE, GENTAMICIN, SALINE) 2 puffs each nostril TID for [address] SMITH NASAL SPRAY ( DEXAMETHASONE, GENTAMICIN, SALINE) No Longer Active Kimberly Rodriguez PREDNISONE 20 MG TAB 2 pills at once for 2 days then 1 pill daily for 2 days PREDNISONE 98039332243 No Longer Active Kimberly Rodriguez ZYRTEC 10 MG TAB 1 PO QAM CETIRIZINE HCL Active Kimberlyana Rodriguez TRANSDERM-SCOP 1.[address] 1 patch behind ear and change every 3 days SCOPOLAMINE BASE 60045732746 No Longer Active Kimberly Tigist Rodriguez CARAFATE 1 GM TABS 1 PO 30 minutes before meals and at bedtime SUCRALFATE 47586232281 No Longer Active Kimberly Tigist Rodriguez SYNTHROID 50 MCG TABS 1 PO daily LEVOTHYROXINE SODIUM 94067829997 Active Ching Clark AMBIEN 10 MG TAB 1/2 PO QHS prn ZOLPIDEM TARTRATE 63533994986 No Longer Active Kimberly Tigist Rodriguez PYRIDIUM 200 MG TAB 1 PO TID prn urinary urgency PHENAZOPYRIDINE HCL 17638838471 No Longer Active Neo Arnold CIPRO 500 MG TAB 1 PO BID for 7 days CIPROFLOXACIN HCL 60752518910 No Longer Active Neo Arnold CIPRO 500 MG TAB 1 PO BID for 7 days CIPROFLOXACIN HCL 40603407981 No Longer Active Kimberly STOCKTON'Nicole NASAL SPRAY (DEXAMETHASONE, GENTAMICIN, SALINE) 2 puffs each nostril TID for [address] STOCKTON'Nicole NASAL SPRAY ( DEXAMETHASONE, GENTAMICIN, SALINE) No Longer Active Kimberly Rodriguez AUGMENTIN 500-125 MG TAB 1 PO BID AMOXICILLIN-POT CLAVULANATE 38529700834 No Longer Active Kimberlyana Rodriguez PRILOSEC 20 MG CAP CR 1 PO daily OMEPRAZOLE 31004757297 No Longer Active Kimberlyana Rodriguez FOLTX 2.5-25-1 MG TABS 1 po daily FOLIC ACID-VIT B6-VIT B12 33395602646 No Longer Active Kimberlyana Rodriguez PREDNISONE 20 MG TAB 2 pills at once for 2 days then 1 pill daily for 2 days PREDNISONE 25402806836 No Longer Active Kimberly Tigist Rodriguez FOSAMAX 70 MG TABS 1 PO Qwk ALENDRONATE SODIUM 60585528914 Active Ching Clark VITAMIN E 400 UNIT CAPS 1 po daily VITAMIN E 43967722865 No Longer Active Kimberlyana Rodriguez PROTONIX 40 MG TBEC 1 po daily PANTOPRAZOLE SODIUM 79410221476 No Longer Active Ching Clark FLORENCE 180 MG TABS 1 PO daily FEXOFENADINE HCL 36578264162 No Longer Active Kimberly Tigist Rodriguez PROTONIX 40 MG TBEC 1 po qd PANTOPRAZOLE SODIUM 37043490699 No Longer Active Kimberly Tigist Rodriguez AMOXICILLIN 500 MG CAP 1 PO TID AMOXICILLIN 87985232399 No Longer Active Kimberly Tigist Rodriguez CHLORPHENIRAMINE MALEATE CR 8 MG CPCR 1 PO Q6hrs prn CHLORPHENIRAMINE MALEATE 41252030241 No Longer Active Kimberly Tigist Rodriguez LUNESTA 2 MG TABS 1 PO QHS prn ESZOPICLONE 05342480529 No Longer Active Kimberly Tigist Rodriguez XANAX 0.25 MG TABS 1 PO Q6hrs prn ALPRAZOLAM 88403152439 No Longer Active Kimberlyana Rodriguez AUGMENTIN 500-125 MG TAB 1 PO BID for 7 days AMOXICILLIN-POT CLAVULANATE 14946087763 No Longer Active Kimberlyana STOCKTON'Nicole NASAL SPRAY (DEXAMETHASONE, GENTAMICIN, SALINE) 2 puffs each nostril TID DR. SMITH NASAL SPRAY (DEXAMETHASONE, GENTAMICIN, SALINE) No Longer Active Kimberly Tigist Rodriguez MUCINEX 600 MG TB12 1 PO BID for 5 days GUAIFENESIN 90780945254 No Longer Active Kimberly Tigist Rodriguez NEXIUM 40 MG CPDR 1 po daily ESOMEPRAZOLE MAGNESIUM 15817295156 No Longer Active Ching Clark VOLTAREN 50 MG TBEC 2 PO QD DICLOFENAC SODIUM 29684712589 No Longer Active Kimberly Tigist Rodriguez ACTONEL 35 MG TABS 1 PO Q week RISEDRONATE SODIUM 05353801355 No Longer Active Ching Clark CALTRATE PLUS 600-200 MG-UNIT TABS 1 PO BID CALCIUM CARBONATE-VIT D- MIN 95167534492 Active Kimberly Tigist Rodriguez CHLORPHENIRAMINE MALEATE CR 8 MG CPCR 1 PO Q6hrs prn CHLORPHENIRAMINE MALEATE 03750471959 No Longer Active Kimberlyana Rodriguez PHENERGAN VC/CODEINE 6.25-5-10 MG/5ML SYRP 5 cc PO Q4-6 hrs prn cough WQNUMBSRI-LEWZFBYSPGII-LIK 02671884208 No Longer Active Kimberlyana Rodriguez ZITHROMAX Z-BRENDA 250 MG TABS 1 daily as directed AZITHROMYCIN 77448604408 No Longer Active Kimberlyana Rodriguez LORTAB 5 5-500 MG TABS 1/2 to 1 PO Q4-6hrs prn ACETAMINOPHEN-HYDROCODONE 03618020433 No Longer Active Kimberlyana Rodriguez CALCIUM 600 MG TABS 2 po daily CALCIUM 71090229492 No Longer Active Kimberly Rodriguez ASPIRIN 81 MG TABS 1 po daily ASPIRIN 88140683539 Active Kimberlyana Rodriguez VYTORIN 10-40 MG TABS 1 po daily EZETIMIBE-SIMVASTATIN 35333138747 No Longer Active Ching Clark Immunizations Vaccine Administration Date Value Standard Description Influenza vaccine given done influenza virus vaccine, unspecified formulation Influenza vaccine given Received influenza virus vaccine, unspecified formulation Vital Signs Date Name Value Unit Range Description blood pressure, diastolic - 8462-4 60 mm[Hg] BP li blood pressure, systolic - 8480-6 120 mm[Hg] BP sys pulse rate E&M - 8867-4 65 /min Heart rate respiratory rate E&M - 9279-1 14 /min Resp rate blood pressure, diastolic - 8462-4 58 mm[Hg] BP li blood pressure, systolic - 8480-6 122 mm[Hg] BP sys pulse rate E&M - 8867-4 72 /min Heart rate respiratory rate E&M - 9279-1 14 /min Resp rate temperature E&M 97.5 [degF] Body temperature weight E&M - 3141-9 155 [lb_av] Weight Measured blood pressure, diastolic - 8462-4 78 mm[Hg] BP li blood pressure, systolic - 8480-6 120 mm[Hg] BP sys pulse rate E&M - 8867-4 68 /min Heart rate respiratory rate E&M - 9279-1 14 /min Resp rate weight E&M - 3141-9 156 [lb_av] Weight Measured blood pressure, diastolic - 8462-4 72 mm[Hg] BP li blood pressure, systolic - 8480-6 118 mm[Hg] BP sys pulse rate E&M - 8867-4 80 /min Heart rate respiratory rate E&M - 9279-1 14 /min Resp rate temperature E&M 98.6 [degF] Body temperature weight E&M - 3141-9 155 [lb_av] Weight Measured Diagnostic Results Date Name Value Unit Range Description Clinical Lists Update: BMP,HgA1c,UA - Chemistry glucose, plasma fasting 99 mg/dL Estimated Glomerular Filtration Rate (calc) 43 mL/min/1.73m2 urea nitrogen, blood 18 mg/dL calcium, serum 9.5 mg/dL chloride, serum 106 mmol/L anion gap, serum 13 creatinine, serum 1.23 mg/dL hemoglobin A1C, blood, as % of total hemoglobin 5.70 % potassium, serum 4.5 mmol/L sodium, serum 141 mmol/L carbon dioxide, venous blood 27 mmol/L Clinical Lists Update: BMP,HgA1c,UA - Urinalysis bilirubin, urine neg glucose, urine, semiquantitative neg ketones, urine, by test strip neg nitrite, urine, semiquantitative neg pH, urine, semiquantitative 7.0 specific gravity, urine 1.015 urobilinogen, urine, semiquantitative (dipstick) 0.2 appearance, urine Clear Yellow WBC urine on microscopy 0-2 {Cells}/[HPF] RBC urine by microscopy 0-2 bacteria, urine microscopy trace protein, urine, semiquantitative (dipstick) neg blood in urine (hemoglobin) by dipstick trace epithelial cells, urine 0-5 /[LPF] Clinical Lists Update: CBC,[facility] - Chemistry Estimated Glomerular Filtration Rate (calc) 48 mL/min/1.73m2 albumin, serum 4.1 g/dL anion gap, serum 13 sodium, serum 141 mmol/L bilirubin, serum, total 0.3 mg/dL alanine aminotransferase (SGPT), serum 21 U/L aspartate aminotransferase (SGOT), serum 20 U/L protein, total, serum 7.0 g/dL potassium, serum 4.5 mmol/L creatinine, serum 1.12 mg/dL carbon dioxide, venous blood 28 mmol/L chloride, serum 105 mmol/L calcium, serum 9.8 mg/dL urea nitrogen, blood 15 mg/dL alkaline phosphatase, serum 77 U/L glucose, plasma fasting 94 mg/dL Clinical Lists Update: CBC,[facility] - Hematology hemoglobin, blood 14.0 g/dL hematocrit, blood 43.9 % platelet count 288 10*3/mm3 erythrocyte (RBC) count 4.74 10*6/mm3 leukocyte count, blood 7.48 10*3/mm3 mean corpuscular volume, RBC 92.6 fL red blood cell distribution width 13.1 % Clinical Lists Update: CMP,FLP,TSH,Free 4 - Chemistry alanine aminotransferase (SGPT), serum 15 U/L Estimated Glomerular Filtration Rate (calc) 63 mL/min/1.73m2 protein, total, serum 6.9 g/dL potassium, serum 4.5 mmol/L LDL cholesterol, serum 93 mg/dL thyroid stimulating hormone, serum 1.63 u[iU]/mL HDL cholesterol, serum 53.0 mg/dL thyroxine, serum, free 0.80 ng/dL creatinine, serum 0.9 mg/dL carbon dioxide, venous blood 27.0 mmol/L cholesterol, serum 188 mg/dL chloride, serum 104 mmol/L calcium, serum 9.6 mg/dL urea nitrogen, blood 16 mg/dL alkaline phosphatase, serum 62 U/L albumin, serum 4.3 g/dL bilirubin, serum, total 0.4 mg/dL triglyceride, serum, fasting 212 mg/dL sodium, serum 138 mmol/L anion gap, serum 12 cholesterol/HDL ratio, serum, percent 3.5 glucose, plasma fasting 102 mg/dL aspartate aminotransferase (SGOT), serum 16 U/L Clinical Lists Update: [facility] - Chemistry Estimated Glomerular Filtration Rate (calc) 51 mL/min/1.73m2 glucose, plasma fasting 100 mg/dL sodium, serum 140 mmol/L bilirubin, serum, total 0.4 mg/dL alanine aminotransferase (SGPT), serum 16 U/L aspartate aminotransferase (SGOT), serum 19 U/L protein, total, serum 7.5 g/dL potassium, serum 3.9 mmol/L creatinine, serum 1.06 mg/dL carbon dioxide, venous blood 28 mmol/L chloride, serum 103 mmol/L calcium, serum 9.8 mg/dL urea nitrogen, blood 19 mg/dL alkaline phosphatase, serum 77 U/L albumin, serum 4.4 g/dL Clinical Lists Update: [facility] - Hematology red blood cell distribution width 14.0 % mean corpuscular volume, RBC 90 fL leukocyte count, blood 15.8 10*3/mm3 erythrocyte (RBC) count 5.15 10*6/mm3 platelet count 287 10*3/mm3 hemoglobin, blood 15.1 g/dL hematocrit, blood 47 % Clinical Lists Update: [facility] - Urinalysis specific gravity, urine 1.020 urobilinogen, urine, semiquantitative (dipstick) normal appearance, urine Cloudy Yellow WBC urine on microscopy TNTC {Cells}/[HPF] RBC urine by microscopy 25-50 bacteria, urine microscopy large hyaline casts, urine none /[LPF] epithelial cells, urine none /[LPF] pH, urine, semiquantitative 5 nitrite, urine, semiquantitative neg mucus on urinalysis neg bilirubin, urine neg glucose, urine, semiquantitative neg protein, urine, semiquantitative (dipstick) 3+ blood in urine (hemoglobin) by dipstick 5+ ketones, urine, by test strip neg Clinical Lists Update: U[facility] - Urinalysis appearance, urine Clear yellow urobilinogen, urine, semiquantitative (dipstick) 0.2 specific gravity, urine 1.020 pH, urine, semiquantitative 7.5 nitrite, urine, semiquantitative neg ketones, urine, by test strip neg bilirubin, urine neg glucose, urine, semiquantitative neg WBC urine on microscopy 0-2 {Cells}/[HPF] RBC urine by microscopy 3-5 bacteria, urine microscopy trace hyaline casts, urine none /[LPF] epithelial cells, urine none /[LPF] mucus on urinalysis none blood in urine (hemoglobin) by dipstick trace protein, urine, semiquantitative (dipstick) neg glucose, urine, semiquantitative neg bilirubin, urine neg ketones, urine, by test strip neg nitrite, urine, semiquantitative neg pH, urine, semiquantitative 5.0 specific gravity, urine 1.015 urobilinogen, urine, semiquantitative (dipstick) 0.2 appearance, urine Clear Yellow WBC urine on microscopy 5-10 {Cells}/[HPF] RBC urine by microscopy 3-5 protein, urine, semiquantitative (dipstick) neg hyaline casts, urine none /[LPF] epithelial cells, urine 0-5 /[LPF] mucus on urinalysis 1+ blood in urine (hemoglobin) by dipstick trace bacteria, urine microscopy trace Encounters Code Encounter Date Provider Facility CPT-29151 Ofc Vst, Est Level III 17:20:03 CDT Kimberly Rodriguez DO, [facility] CPT-44814 Ofc Vst, Est Level III 16:19:16 CDT Kimberlyana Rodriguez [facility] CPT-77851 Ofc Vst, Est Level III 16:38:23 CDT Kimberly Tigist Rodriguez [facility] CPT-10309 Ofc Vst, Est Level IV 15:59:17 CDT Kimberly Tigist Rivera Jennifer, DO, FACP CPT-25948 Ofc Vst, Est Level III 19:15:57 [employer] Kimberlyana Rivera Jennifer, DO, FACP CPT-41878 Ofc Vst, Est Level IV 14:33:29 CDT Kimberly Tigist Rivera Jennifer, DO, FACP CPT-65214 Ofc Vst, Est Level III 14:18:55 CDT Kimberly Tigist Rivera Jennifer, DO, FACP CPT-58856 Ofc Vst, Est Level III 14:29:28 CDT Kimberly Tigist Rivera Jennifer, DO, FACP CPT-76479 Ofc Vst, Est Level III 14:18:14 [employer] Kimberly Tigist Rivera Jennifer, DO, FACP CPT-79064 Ofc Vst, Est Level III 12:56:50 [employer] Kimberly Rivera Jennifer, DO, FACP CPT-22835 Ofc Vst, Est Level III 14:31:59 [employer] Kimberlyana Rivera Jennifer, DO, FACP CPT-51241 Ofc Vst, Est Level IV 14:38:02 CDT Kimberlyana Rodriguez [facility] CPT-52965 Ofc Vst, Est Level IV 11:06:37 CDT Kimberlyana Rodriguez [facility] CPT-43725 Ofc Vst, Est Level V 19:09:08 CDT Kimberly Tigist Rodriguez [facility] CPT-50377 Ofc Vst, Est Level IV 14:13:44 CDT Kimberly Tigist Rodriguez [facility] CPT-94244 Ofc Vst, Est Level IV 16:38:00 CDT Kimberly Tigist Rodriguez [facility] CPT-57660 Ofc Vst, Est Level IV 15:28:06 CDT Kimberly Tigist Rodriguez [facility] CPT-12556 Ofc Vst, Est Level V 10:25:43 [employer] Kimberly Tigist Rivera Jennifer DO, FACP CPT-21214 Ofc Vst, Est Level IV 16:36:02 [employer] Kimberly Tigist Rodriguez [facility] CPT-34573 Ofc Vst, Est Level III 11:21:46 CDT Kimberly Tigist Rivera Jennifer DO, FACP CPT-62785 Ofc Vst, Est Level IV 11:12:07 CDT Kimberly Tigist Rivera DO Jennifer, FACP CPT-74153 Ofc Vst, Est Level IV 15:12:49 CDT Kimberly Tigist Rodriguez [facility] CPT-58400 Ofc Vst, Est Level IV 16:05:13 CDT Kimberly Tigist Rodriguez [facility] CPT-08942 Ofc Vst, Est Level IV 15:38:00 [employer] Kimberly Rodriguez [facility] CPT-85780 Ofc Vst, Est Level IV 15:28:18 CDT Kimberly Tigist Rodriguez [facility] CPT-79258 Ofc Vst, Est Level V 16:06:33 CDT Kimberly Tigist Rodriguez [facility] CPT-65180 Ofc Vst, Est Level IV 14:09:30 [employer] Kimberlyana Escoto Jennifer Harris Nicole Jennifer DO, FACP CPT-94850 Ofc Vst, Est Level III 14:02:58 [employer] Kimberlyana Escoto Jennifer Rodriguez DO, FACP CPT-54264 Ofc Vst, Est Level III 15:30:02 CDT Kimberlyana Escoto Jennifer Rodriguez, DO, FACP CPT-02385 Ofc Vst, Est Level IV 13:43:23 CDT Kimberly Tigist Rodriguez Kimberlyana Rodriguez, DO, FACP CPT-70056 Ofc Vst, Est Level IV 16:04:52 CDT Kimberly Tigist Jennifer Rodriguez, DO, FACP CPT-65874 Ofc Vst, Est Level IV 17:02:51 CDT Kimberly Tigist Jennifer Rodriguez, DO, FACP CPT-83994 Ofc Vst, Est Level V 04:47:48 [employer] Kimberlyana Escoto Jennifer Rodriguez, DO, FACP CPT-57416 Ofc Vst, Est Level IV 15:16:18 [employer] Kimberly Tigist Jennifer Rodrgiuez, DO, FACP CPT-48288 Ofc Vst, Est Level IV 10:56:19 [employer] Kimberly Rodriguez [facility] [place] CPT-30394 Ofc Vst, Est Level IV 16:11:[address] [facility] [place] CPT-21628 Ofc Vst, Est Level IV 17:21:[address] [facility] [place] CPT-55953 Ofc Vst, Est Level III 15:33:15 [employer] Kimberly Rodriguez [facility] [place] CPT-46893 Ofc Vst, Est Level III 10:07:06 [employer]ERSON Kimberly Rodriguez [facility] [place] CPT-04943 Ofc Vst, New Level IV 13:08:[address] [facility] [place] Procedures Code Procedure Name Date Entry Date Standard Description CPT-G0439 Medicare Annual Wellness Visit 20:23:19 [employer] CPT-G8443 E-Prescribing Medication Sent 19:15:57 [employer] CPT-G8443 E-Prescribing Medication Sent 14:33:29 CDT CPT-G8446 E-Prescribing not done due to controlled substance 14:18 :55 CDT CPT-62019 Injection, Pneumovax 14:18:55 CDT CPT-G8443 E-Prescribing Medication Sent 14:29:28 CDT CPT-G8445 E-Prescribing Not sent due to no medication given 15:31: 45 CDT CPT-G0438 Medicare Annual Wellness Visit Initial 15:31:45 CDT CPT-G8445 E-Prescribing Not sent due to no medication given 14:18: 14 [employer] CPT-G8443 E-Prescribing Medication Sent 12:56:50 [employer]ERSON CPT-G8443 E-Prescribing Medication Sent 14:31:59 [employer]ERSON CPT-G8443 E-Prescribing Medication Sent 14:38:02 CDT CPT-06613 Injection 11:21:46 CDT CPT-79407 EKG w/ Interpretation 17:21:05 CDT
--- OUTSIDE RECORDS SUMMARY | 2018-07-16 17:04 | XMS REPORT | Clinical Summary ---
Author Author User, [employer] Organization [facility] [place] Address Unknown Phone Unavailable Allergies, Adverse Reactions, Alerts Allergy Name Reaction Description Start Date Severity Status Provider ULTRAM rash Critical Active Kimberly Rodriguez MERCURY EAR DROPS Critical Active Kimberly Rodriguez Conditions or Problems Problem Name Problem Code Onset Date Status Entry Date Provider Comment Standard Description Annotate CORONARY ARTERY DISEASE 414.00 Resolved Kimberly Rodriguez Coronary atherosclerosis of unspecified type of vessel, [place] or graft OSTEOPENIA 733.90 Active Kimberly Rodriguez [...] pancreatitis SINUSITIS, SPHENOIDAL, ACUTE 461.3 Resolved Kimberly Rodriguez Acute sphenoidal sinusitis HYPERGLYCEMIA, MILD 790.6 Resolved Kimberly Rodriguez Other abnormal blood chemistry HYPOTHYROIDISM, PRIMARY 244.9 Active Kimberly Rodriguez Unspecified hypothyroidism URINARY TRACT INFECTION (UTI) 599.0 Resolved Kimberly Rodriguez Urinary tract infection, site not specified HYPERTRIGLYCERIDEMIA 272.1 Active Kimberly Rodriguez Pure hyperglyceridemia DYSPNEA 786.09 Resolved Kimberly Rodriguez Other dyspnea and respiratory abnormality CYANOSIS 782.5 Resolved Kimberly Rodriguez Cyanosis CORONARY ATHEROSCLEROSIS, KAW VESSEL 414.01 Active Kimberly Rodriguez Coronary atherosclerosis of [place] coronary artery SHORTNESS OF BREATH 786.05 Resolved [...] infection, site not specified BRONCHITIS, ACUTE 466.0 Resolved Kimberly Rodriguez Acute bronchitis UTI 599.0 Active Kimberly Rodriguez Urinary tract infection, site not specified Medication List Medication Instructions Start Date Stop Date Generic Name NDC Status Provider Patient Instruction PREDNISONE 10 MG TAB 4 po at one time once daily for 2 days then 2 po at one time once daily for 5 days PREDNISONE [id number] No Longer Active Ching Clark PYRIDIUM 200 MG TAB 1 PO TID prn urinary urgency PHENAZOPYRIDINE HCL 22275660053 No Longer Active Kimberly Rodriguez ADVAIR DISKUS 100-50 MCG/DOSE MISC 1 puff BID FLUTICASONE-SALMETEROL 85834528474 No Longer Active Kimberly Tigist Jennifer ROBITUSSIN A-C 10-100 MG/5ML SYRUP 1 teaspoon PO Q 4-6 hr prn ROBITUSSIN A-C 10-100 MG/5ML SYRUP No Longer Active Kimberly Tigist Rodriguez TESSALON PERLES 100 MG CAPS 1 PO TID prn cough BENZONATATE 70457526321 No Longer Active Kimberly Tigist Jennifer CEFDINIR 300 MG CAPS 1 PO BID CEFDINIR 22241809233 No Longer Active Kimberly Tigist Rodriguez PROTONIX 40 MG TBEC 1 PO daily PANTOPRAZOLE SODIUM 34211467235 Active Kimberly Tigist Rodriguez PYRIDIUM 200 MG TAB 1 PO TID prn urinary urgency PHENAZOPYRIDINE HCL 83585112167 No Longer Active Eda [place] BACTRIM DS 800-160 MG TAB 1 PO BID TRIMETHOPRIM- SULFAMETHOXAZOLE 46696460015 No Longer Active Kimberly Tigist Rodriguez FISH OIL 1000 MG CAPS 1 PO daily OMEGA-3 FATTY ACIDS 32292049121 Active Kimberly Tigist Rodriguez PLAVIX 75 MG TABS 1 po daily CLOPIDOGREL BISULFATE 65389859018 No Longer Active Kimberly Tigist Rodriguez CIPRO 500 MG TAB 1 PO BID CIPROFLOXACIN HCL 72595454822 No Longer Active Kimberly Tigist Rodriguez HYDROCODONE-ACETAMINOPHEN 5-325 MG TABS 1-2 PO Q4-6 hrs prn pain HYDROCODONE-ACETAMINOPHEN 34508779867 Active Kimberly Tigist Rodriguez FISH OIL 1000 MG CAPS 3 po daily OMEGA-3 FATTY ACIDS 80542148709 Active Kimberly Tigist Rodriguez AMBIEN 10 MG TAB 1 PO QHS prn ZOLPIDEM TARTRATE 03451655696 No Longer Active Kimberly Tigist Rodriguez LORTAB 5 5-500 MG TABS 1 PO Q6hrs prn ACETAMINOPHEN- HYDROCODONE 51976120653 No Longer Active Kimberly Tigist Rodrgiuez BENADRYL 25 MG CAP 1-2 PO prn at night DIPHENHYDRAMINE HCL 36167239434 No Longer Active Kimberly Tigist Rodriguez KENALOG 0.1 % CREA apply to affected areas BID TRIAMCINOLONE ACETONIDE No Longer Active Kimberly Tigist Rodriguez MOBIC 15 MG TABS 1 PO daily MELOXICAM 96150387931 Active Kimberly Tigist Rodriguez DIALYVITE VITAMIN D 5000 CAPS 1 PO twice weekly. CHOLECALCIFEROL CAPS 02053428791 Active Kimberly Tigist Rodriguez TESSALON 200 MG CAPS 1 PO TID prn cough BENZONATATE 66584243019 No Longer Active Kimberly Tigist Rodriguez BIAXIN 500 MG TAB 1 PO BID CLARITHROMYCIN 91786148636 No Longer Active Kimberly Tigist Rodriguez ALPRAZOLAM 0.5 MG TABS 1 PO QID prn ALPRAZOLAM 57974234670 Active Kimberly Tigist Rodriguez CARAFATE 1 GM TABS 1 PO 30 minutes before meals and at bedtime SUCRALFATE 01551572999 Active Kimberly Tigist Rodriguez KENALOG 0.1 % CREA apply to affected areas BID TRIAMCINOLONE ACETONIDE No Longer Active Kimberly Tigist Rodriguez DICLOFENAC SODIUM 50 MG TBEC 1 po BID DICLOFENAC SODIUM 43960555234 No Longer Active Kimberly Tigist Rodriguez GNP MELATONIN 3 MG TABS 1 po QHS MELATONIN 96851908828 No Longer Active Kimberly Tigist Rodriguez AUGMENTIN 500-125 MG TAB 1 PO BID AMOXICILLIN-POT CLAVULANATE 35039093350 No Longer Active Andrés Sher LEVAQUIN 500 MG TAB 1 PO QD LEVOFLOXACIN 43141430223 No Longer Active Kimberly Tigist Rodriguez FLORENCE 180 MG TABS 1 PO BID FEXOFENADINE HCL 88098390855 No Longer Active Kimberly Tigist Rodriguez ADVAIR DISKUS 100-50 MCG/DOSE MISC 1 puff BID FLUTICASONE-SALMETEROL 60193599176 No Longer Active Kimberly Tigist Rodriguez PROAIR HFA 108 (90 BASE) MCG/ACT AERS 2 puff Q4 hrs prn wheezing ALBUTEROL SULFATE 75015925520 No Longer Active Kimberly Tigist Rodriguez ULTRAM 50 MG TAB 1 PO q 6hrs prn TRAMADOL HCL 99746951764 No Longer Active Kimberlyana Rodriguez ZOCOR 40 MG TAB I PO daily SIMVASTATIN 41240088830 Active Ching Clark ZOSTAVAX 94697 UNT/0.65ML SOLR 1 injection once to prevent Shingles ZOSTER VACCINE LIVE 93846861333 No Longer Active Kimberlyana ABRAHAM ODT 4 MG TBDP 1 dissolved in mouth Q6hrs prn ONDANSETRON 30166798830 No Longer Active Ching Clark DARVOCET-N 100 100-650 MG TAB 1 PO Q4hrs prn pain PROPOXYPHENE N-APAP 12062433842 No Longer Active Kimberly STOCKTON'S NASAL SPRAY (DEXAMETHASONE, GENTAMICIN, SALINE) 2 puffs each nostril TID for [address] STOCKTON'Nicole NASAL SPRAY ( DEXAMETHASONE, GENTAMICIN, SALINE) No Longer Active Kimberly Rodriguez PREDNISONE 20 MG TAB 2 pills at once for 2 days then 1 pill daily for 2 days PREDNISONE 89950151687 No Longer Active Kimberlyana Rodriguez ZYRTEC 10 MG TAB 1 PO QAM CETIRIZINE HCL Active Kimberly Tigist Rodriguez TRANSDERM-SCOP 1.[address] 1 patch behind ear and change every 3 days SCOPOLAMINE BASE 08141841109 No Longer Active Kimberly Rodriguez CARAFATE 1 GM TABS 1 PO 30 minutes before meals and at bedtime SUCRALFATE 95566854089 No Longer Active Kimberlyana Rodriguez SYNTHROID 50 MCG TABS 1 PO daily LEVOTHYROXINE SODIUM 38147717609 Active Ching Clark AMBIEN 10 MG TAB 1/2 PO QHS prn ZOLPIDEM TARTRATE 30600303118 No Longer Active Kimberly Rodriguez PYRIDIUM 200 MG TAB 1 PO TID prn urinary urgency PHENAZOPYRIDINE HCL 82104859195 No Longer Active Neo Arnold CIPRO 500 MG TAB 1 PO BID for 7 days CIPROFLOXACIN HCL 85894779577 No Longer Active Neo Arnold CIPRO 500 MG TAB 1 PO BID for 7 days CIPROFLOXACIN HCL 49058638691 No Longer Active Kimberly STOCKTON'S NASAL SPRAY (DEXAMETHASONE, GENTAMICIN, SALINE) 2 puffs each nostril TID for [address] STOCKTON'S NASAL SPRAY ( DEXAMETHASONE, GENTAMICIN, SALINE) No Longer Active Kimberly Rodriguez AUGMENTIN 500-125 MG TAB 1 PO BID AMOXICILLIN-POT CLAVULANATE 02601082648 No Longer Active Kimberly Rodriguez PRILOSEC 20 MG CAP CR 1 PO daily OMEPRAZOLE 51247482562 No Longer Active Kimberly Rodriguez FOLTX 2.5-25-1 MG TABS 1 po daily FOLIC ACID-VIT B6-VIT B12 59295011011 No Longer Active Kimberly Rodriguez PREDNISONE 20 MG TAB 2 pills at once for 2 days then 1 pill daily for 2 days PREDNISONE 42941997492 No Longer Active Kimberlyana Rodriguez FOSAMAX 70 MG TABS 1 PO Qwk ALENDRONATE SODIUM 92936597408 Active Ching Clark VITAMIN E 400 UNIT CAPS 1 po daily VITAMIN E 35977140214 No Longer Active Kimberlyana Rodriguez PROTONIX 40 MG TBEC 1 po daily PANTOPRAZOLE SODIUM 60866303892 No Longer Active Ching Clark FLORENCE 180 MG TABS 1 PO daily FEXOFENADINE HCL 50324345359 No Longer Active Kimberly Tigist Rodriguez PROTONIX 40 MG TBEC 1 po qd PANTOPRAZOLE SODIUM 75946167511 No Longer Active Kimberly Tigist Rodriguez AMOXICILLIN 500 MG CAP 1 PO TID AMOXICILLIN 42678299282 No Longer Active Kimberly Tigist Rodriguez CHLORPHENIRAMINE MALEATE CR 8 MG CPCR 1 PO Q6hrs prn CHLORPHENIRAMINE MALEATE 25729268436 No Longer Active Kimberly Tigist Rodriguez LUNESTA 2 MG TABS 1 PO QHS prn ESZOPICLONE 33587540110 No Longer Active Kimberly Tigist Rodriguez XANAX 0.25 MG TABS 1 PO Q6hrs prn ALPRAZOLAM 52460383481 No Longer Active Kimberlyana Rordiguez AUGMENTIN 500-125 MG TAB 1 PO BID for 7 days AMOXICILLIN-POT CLAVULANATE 72806829864 No Longer Active Kimberly STOCKTON'S NASAL SPRAY (DEXAMETHASONE, GENTAMICIN, SALINE) 2 puffs each nostril TID DR. STOCKTON'Nicole NASAL SPRAY (DEXAMETHASONE, GENTAMICIN, SALINE) No Longer Active Kimberly Rodriguez MUCINEX 600 MG TB12 1 PO BID for 5 days GUAIFENESIN 29983010674 No Longer Active Kimberly Rodriguez NEXIUM 40 MG CPDR 1 po daily ESOMEPRAZOLE MAGNESIUM 24081199833 No Longer Active Ching Clark VOLTAREN 50 MG TBEC 2 PO QD DICLOFENAC SODIUM 69329028704 No Longer Active Kimberly Tigist Rodriguez ACTONEL 35 MG TABS 1 PO Q week RISEDRONATE SODIUM 12732269312 No Longer Active Ching Clark CALTRATE PLUS 600-200 MG-UNIT TABS 1 PO BID CALCIUM CARBONATE-VIT D- MIN 48523621193 Active Kimberly Tigist Rodriguez CHLORPHENIRAMINE MALEATE CR 8 MG CPCR 1 PO Q6hrs prn CHLORPHENIRAMINE MALEATE 26251381392 No Longer Active Kimberly Tigist Rodriguez PHENERGAN VC/CODEINE 6.25-5-10 MG/5ML SYRP 5 cc PO Q4-6 hrs prn cough [id number] 99380117986 No Longer Active Kimberly Tigist Rodriguez ZITHROMAX Z-BRENDA 250 MG TABS 1 daily as directed AZITHROMYCIN 34474012532 No Longer Active Kimberly Tigist Rodriguez LORTAB 5 5-500 MG TABS 1/2 to 1 PO Q4-6hrs prn ACETAMINOPHEN-HYDROCODONE 69395777330 No Longer Active Kimberly Tigist Rodriguez CALCIUM 600 MG TABS 2 po daily CALCIUM 67631145665 No Longer Active Kimberlyana Rodriguez ASPIRIN 81 MG TABS 1 po daily ASPIRIN 34104718834 Active Kimberly Tigist Rodriguez VYTORIN 10-40 MG TABS 1 po daily EZETIMIBE-SIMVASTATIN 68383943851 No Longer Active Ching Clark Immunizations Vaccine Administration Date Value Standard Description Influenza vaccine given done influenza virus vaccine, unspecified formulation Influenza vaccine given Received influenza virus vaccine, unspecified formulation Vital Signs Date Name Value Unit Range Description blood pressure, diastolic - 8462-4 65 mm[Hg] BP li blood pressure, systolic - 8480-6 120 mm[Hg] BP sys pulse rate E&M - 8867-4 62 /min Heart rate respiratory rate E&M - 9279-1 14 /min Resp rate weight E&M - 3141-9 155 [lb_av] Weight Measured blood pressure, diastolic - 8462-4 60 mm[Hg] [...] cells, urine 0-5 /[LPF] Clinical Lists Update: CBC,CMP - Chemistry Estimated Glomerular Filtration Rate (calc) [...] plasma fasting 94 mg/dL Clinical Lists Update: CBC,CMP - Hematology hemoglobin, blood 14.0 g/dL hematocrit, [...] trace Encounters Code Encounter Date Provider Facility CPT-37952 Ofc Vst, Est Level III 17:38:44 CDT Kimberly Tigist Rodriguez, DO, FACP CPT-57088 Ofc Vst, Est Level III 17:20:03 CDT Kimberly Tigist Rodriguez, DO, FACP CPT-00411 Ofc Vst, Est Level III 16:19:16 CDT Kimberlyana Rodriguez [place] [facility] CPT-06821 Ofc Vst, Est Level III 16:38:23 CDT Kimberly Tigist Rodriguez [place] [facility] [facility] CPT-99560 Ofc Vst, Est Level IV 15:59:17 CDT Kimberlyana Rodriguez, DO, FACP CPT-38179 Ofc Vst, Est Level III 19:15:57 C CONSULTANT Kimberly Rodriguez, DO, FACP CPT-66193 Ofc Vst, Est Level IV 14:33:29 CDT Kimberly Rodriguez, DO, FACP CPT-84812 Ofc Vst, Est Level III 14:18:55 CDT Kimberlyana Rodriguez, DO, FACP CPT-89596 Ofc Vst, Est Level III 14:29:28 CDT Kimberly Rodriguez, DO, FACP CPT-81001 Ofc Vst, Est Level III 14:18:14 C CONSULTANT Kimberly Rodriguez, DO, FACP CPT-30170 Ofc Vst, Est Level III 12:56:50 C CONSULTANT Kimberly Rodriguez, DO, FACP CPT-99162 Ofc Vst, Est Level III 14:31:59 C CONSULTANT Kimberly Tigist Rivera Jennifer DO, FACP CPT-08633 Ofc Vst, Est Level IV 14:38:02 CDT Kimberly Tigist Rodriguez [place] [facility] [facility] CPT-75436 Ofc Vst, Est Level IV 11:06:37 CDT Kimberly Tigist Rodriguez [place] [facility] [facility] CPT-99990 Ofc Vst, Est Level V 19:09:08 CDT [facility] Ofc Vst, Est Level IV 14:13:44 CDT Kimberly Tigist Rodriguez [place] [facility] [facility] CPT-88106 Ofc Vst, Est Level IV 16:38:00 CDT Kimberly Tigist Rodriguez [place] [facility] CPT-22155 Ofc Vst, Est Level IV 15:28:06 CDT Kimberly Tigist [facility] CPT-64156 Ofc Vst, Est Level V 10:25:43 C CONSULTANT Kimberlyana Rivera Jennifer, DO, FACP CPT-49709 Ofc Vst, Est Level IV 16:36:02 C CONSULTANT Kimberly Tigist Rodriguez [place] [facility] CPT-00279 Ofc Vst, Est Level III 11:21:46 CDT Kimberly Tigist Mckinleyi Nicole Jennifer, DO, FACP CPT-84710 Ofc Vst, Est Level IV 11:12:07 CDT Kimberly Tigist Mckinleyi Nicole Jennifer, DO, FACP CPT-99852 Ofc Vst, Est Level IV 15:12:49 CDT [facility]-55880 Ofc Vst, Est Level IV 16:05:13 CDT [facility] CPT-16237 Ofc Vst, Est Level IV 15:38:00 C CONSULTANT Kimberly Rodriguez [place] [facility] CPT-80408 Ofc Vst, Est Level IV 15:28:18 CDT Kimberly Tigist Rodriguez [place] [facility] CPT-01749 Ofc Vst, Est Level V 16:06:33 CDT Kimberly Tigist Rodriguez [place] [facility] CPT-48138 Ofc Vst, Est Level IV 14:09:30 C CONSULTANT Kimberly Tigist Rivera Jennifer, DO, FACP CPT-47116 Ofc Vst, Est Level III 14:02:58 C CONSULTANT Kimberly Tigist Benderner Kimberly Nicole Jennifer, DO, FACP CPT-15527 Ofc Vst, Est Level III 15:30:02 CDT Kimberlyana Benderbelle Rodriguez, DO, FACP CPT-44386 Ofc Vst, Est Level IV 13:43:23 CDT Kimberly Tigist Rodriguez Kimberly Rivera Jennifer, DO, FACP CPT-10584 Ofc Vst, Est Level IV 16:04:52 CDT Kimberly Tigist Rodriguez Kimberly Nicole Jennifer, DO, FACP CPT-64581 Ofc Vst, Est Level IV 17:02:51 CDT Kimberlyana Benderbelle Rodriguez, DO, FACP CPT-51537 Ofc Vst, Est Level V 04:47:48 C CONSULTANT Kimberly Escoto Jennifer Rodriguez, DO, FACP CPT-53553 Ofc Vst, Est Level IV 15:16:18 C CONSULTANT Kimberlyana Escoto Jennifer Rodriguez, DO, FACP CPT-98827 Ofc Vst, Est Level IV 10:56:19 C CONSULTANT Kimberly Rodriguez [facility] [place] CPT-19743 Ofc Vst, Est Level IV 16:11:38 CDT Kimberly Rodriguez [facility] [place] CPT-42151 Ofc Vst, Est Level IV 17:21:05 CDT Kimberly Rodriguez [facility] [place] CPT-85427 Ofc Vst, Est Level III 15:33:15 C CONSULTANT Kimberly Rodriguez [facility] [place] CPT-79558 Ofc Vst, Est Level III 10:07:06 C CONSULTANT Kimberly Rodriguez [facility] [place] CPT-17572 Ofc Vst, New Level IV 13:08:11 CDT Kimberly Rodriguez [facility] [place] Procedures Code Procedure Name Date Entry Date Standard Description CPT-G0439 Medicare Annual Wellness Visit 20:23:19 C CONSULTANT CPT-G8443 E-Prescribing Medication Sent 19:15:57 C CONSULTANT CPT-G8443 E-Prescribing Medication Sent 14:33:29 CDT CPT-G8446 E-Prescribing not done due to controlled substance 14:18 :55 CDT CPT-11018 Injection, Pneumovax 14:18:55 CDT CPT-G8443 E-Prescribing Medication Sent 14:29:28 CDT CPT-G8445 E-Prescribing Not sent due to no medication given 15:31: 45 CDT CPT-G0438 Medicare Annual Wellness Visit Initial 15:31:45 CDT CPT-G8445 E-Prescribing Not sent due to no medication given 14:18: 14 C CONSULTANT CPT-G8443 E-Prescribing Medication Sent 12:56:50 C CONSULTANT CPT-G8443 E-Prescribing Medication Sent 14:31:59 C CONSULTANT CPT-G8443 E-Prescribing Medication Sent 14:38:02 CDT CPT-88133 Injection 11:21:46 CDT CPT-34755 EKG w/ Interpretation 17:21:05 CDT
[2018-07-16 17:06] LABS: BASOPHILS # (AUTO) 0.1 10^3/uL (0.0-0.1); BASOPHILS % (AUTO) 1 % (0-10); EOSINOPHILS # (AUTO) 0.7 10^3/uL (0.0-0.3); EOSINOPHILS % (AUTO) 7 % (0-10); HEMATOCRIT 43 % (35-52); HEMOGLOBIN 13.8 G/DL (11.5-16.0); LYMPHOCYTES # (AUTO) 2.6 X 10^3 (1.0-4.0); LYMPHOCYTES % (AUTO) 26 % (12-44); MEAN CORPUSCULAR HEMOGLOBIN 30 PG (25-34); MEAN CORPUSCULAR HGB CONC 32 G/DL (32-36); MEAN CORPUSCULAR VOLUME 92 FL (80-99); MEAN PLATELET VOLUME 10.2 FL (7.4-10.4); MONOCYTES # (AUTO) 1.1 X 10^3 (0.0-1.0); MONOCYTES % (AUTO) 11 % (0-12); NEUTROPHILS # (AUTO) 5.5 X 10^3 (1.8-7.8); NEUTROPHILS % (AUTO) 55 % (42-75); PLATELET COUNT 234 10^3/uL (130-400)
--- OUTSIDE RECORDS SUMMARY | 2018-07-16 17:09 | XMS REPORT | Clinical Summary ---
Author Author User, [employer] Organization [facility] [place] Address Unknown Phone Unavailable Allergies, Adverse Reactions, Alerts Allergy Name Reaction Description Start Date Severity Status Provider ULTRAM rash Critical Active Kimberly Rodriguez MERCURY EAR DROPS Critical Active Kimberly Rodriguez Conditions or Problems Problem Name Problem Code Onset Date Status Entry Date Provider Comment Standard Description Annotate CORONARY ARTERY DISEASE 414.00 Resolved Kimberly Rodriguez Coronary atherosclerosis of unspecified type of vessel, [facility] or graft OSTEOPENIA 733.90 Active Kimberly Rodriguez [...] 782.5 Resolved Kimberly Rodriguez Cyanosis CORONARY ATHEROSCLEROSIS, [place] VESSEL 414.01 Active Kimberly Rodriguez Coronary atherosclerosis of [facility] coronary artery SHORTNESS OF BREATH 786.05 Resolved [...] Pure hypercholesterolemia ABDOMINAL PAIN, GENERALIZED 789.07 Inactive iKmberly Rodriguez Abdominal pain, generalized URINARY FREQUENCY 788.41 [...] time once daily for 5 days PREDNISONE [id number] No Longer Active Ching Clark PYRIDIUM 200 MG TAB 1 PO TID prn urinary urgency PHENAZOPYRIDINE HCL 47538288293 No Longer Active Kimberly Rodriguez ADVAIR DISKUS 100-50 MCG/DOSE MISC 1 puff BID FLUTICASONE-SALMETEROL 46441966165 No Longer Active Kimberly Tigist Jennifer ROBITUSSIN A-C 10-100 MG/5ML SYRUP 1 teaspoon PO Q 4-6 hr prn ROBITUSSIN A-C 10-100 MG/5ML SYRUP No Longer Active Kimberly Tigist Rodriguez TESSALON PERLES 100 MG CAPS 1 PO TID prn cough BENZONATATE 22731927912 No Longer Active Kimberly Tigist Jennifer CEFDINIR 300 MG CAPS 1 PO BID CEFDINIR 87457325340 No Longer Active Kimberly Tigist Rodriguez PROTONIX 40 MG TBEC 1 PO daily PANTOPRAZOLE SODIUM 87502795003 Active Kimberly Tigist Rodriguez PYRIDIUM 200 MG TAB 1 PO TID prn urinary urgency PHENAZOPYRIDINE HCL 11709290365 No Longer Active Eda [place] BACTRIM DS 800-160 MG TAB 1 PO BID TRIMETHOPRIM- SULFAMETHOXAZOLE 29006863635 No Longer Active Kimberly Tigist Rodriguez FISH OIL 1000 MG CAPS 1 PO daily OMEGA-3 FATTY ACIDS 77523865318 Active Kimberly Tigist Rodriguez PLAVIX 75 MG TABS 1 po daily CLOPIDOGREL BISULFATE 45282782180 No Longer Active Kimberly Tigist Rodriguez CIPRO 500 MG TAB 1 PO BID CIPROFLOXACIN HCL 25798704612 No Longer Active Kimberly Tigist Rodriguez HYDROCODONE-ACETAMINOPHEN 5-325 MG TABS 1-2 PO Q4-6 hrs prn pain HYDROCODONE-ACETAMINOPHEN 94087124457 Active Kimberly Tigist Rodriguez FISH OIL 1000 MG CAPS 3 po daily OMEGA-3 FATTY ACIDS 80363290090 Active Kimberly Tigist Rodriguez AMBIEN 10 MG TAB 1 PO QHS prn ZOLPIDEM TARTRATE 66019298993 No Longer Active Kimberly Tigist Rodriguez LORTAB 5 5-500 MG TABS 1 PO Q6hrs prn ACETAMINOPHEN- HYDROCODONE 13459466053 No Longer Active Kimberly Tigist Rodriguez BENADRYL 25 MG CAP 1-2 PO prn at night DIPHENHYDRAMINE HCL 31958273322 No Longer Active Kimberly Tigist Rodriguez KENALOG 0.1 % CREA apply to affected areas BID TRIAMCINOLONE ACETONIDE No Longer Active Kimberly Tigist Rodriguez MOBIC 15 MG TABS 1 PO daily MELOXICAM 53963058873 Active Kimberly Tigist Rodriguez DIALYVITE VITAMIN D 5000 CAPS 1 PO twice weekly. CHOLECALCIFEROL CAPS 29948593175 Active Kimberly Tigist Rodriguez TESSALON 200 MG CAPS 1 PO TID prn cough BENZONATATE 77607971516 No Longer Active Kimberly Tigist Rodriguez BIAXIN 500 MG TAB 1 PO BID CLARITHROMYCIN 73175926556 No Longer Active Kimberly Tigist Rodriguez ALPRAZOLAM 0.5 MG TABS 1 PO QID prn ALPRAZOLAM 47511977642 Active Kimberly Tigist Rodriguez CARAFATE 1 GM TABS 1 PO 30 minutes before meals and at bedtime SUCRALFATE 96923198358 Active Kimberly Tigist Rodriguez KENALOG 0.1 % CREA apply to affected areas BID TRIAMCINOLONE ACETONIDE No Longer Active Kimberly Tigist Rodriguez DICLOFENAC SODIUM 50 MG TBEC 1 po BID DICLOFENAC SODIUM 49728829012 No Longer Active Kimberly Tigist Rodriguez GNP MELATONIN 3 MG TABS 1 po QHS MELATONIN 98013989422 No Longer Active Kimberly Tigist Rodriguez AUGMENTIN 500-125 MG TAB 1 PO BID AMOXICILLIN-POT CLAVULANATE 47273544364 No Longer Active Andrés Sher LEVAQUIN 500 MG TAB 1 PO QD LEVOFLOXACIN 09817269463 No Longer Active Kimberly Tigist Rodriguez FLORENCE 180 MG TABS 1 PO BID FEXOFENADINE HCL 44070774516 No Longer Active Kimberly Tigist Rodriguez ADVAIR DISKUS 100-50 MCG/DOSE MISC 1 puff BID FLUTICASONE-SALMETEROL 73421364179 No Longer Active Kimberly Tigist Rodriguez PROAIR HFA 108 (90 BASE) MCG/ACT AERS 2 puff Q4 hrs prn wheezing ALBUTEROL SULFATE 91333508418 No Longer Active Kimberly Tigist Rodriguez ULTRAM 50 MG TAB 1 PO q 6hrs prn TRAMADOL HCL 06702151661 No Longer Active Kimberlyana Rodriguez ZOCOR 40 MG TAB I PO daily SIMVASTATIN 62030966156 Active Ching Clark ZOSTAVAX 63477 UNT/0.65ML SOLR 1 injection once to prevent Shingles ZOSTER VACCINE LIVE 12649593190 No Longer Active Kimberlyana ABRAHAM ODT 4 MG TBDP 1 dissolved in mouth Q6hrs prn ONDANSETRON 01443487160 No Longer Active Ching Clark DARVOCET-N 100 100-650 MG TAB 1 PO Q4hrs prn pain PROPOXYPHENE N-APAP 05502125063 No Longer Active Kimberly STOCKTON'S NASAL SPRAY (DEXAMETHASONE, GENTAMICIN, SALINE) 2 puffs each nostril TID for [address] STOCKTON'Nicole NASAL SPRAY ( DEXAMETHASONE, GENTAMICIN, SALINE) No Longer Active Kimberly Rodriguez PREDNISONE 20 MG TAB 2 pills at once for 2 days then 1 pill daily for 2 days PREDNISONE 08459280354 No Longer Active Kimberlyana Rodriguez ZYRTEC 10 MG TAB 1 PO QAM CETIRIZINE HCL Active Kimberly Tigist Rodriguez TRANSDERM-SCOP 1.[address] 1 patch behind ear and change every 3 days SCOPOLAMINE BASE 48567158509 No Longer Active Kimberly Rodriguez CARAFATE 1 GM TABS 1 PO 30 minutes before meals and at bedtime SUCRALFATE 97385315077 No Longer Active Kimberlyana Rodriguez SYNTHROID 50 MCG TABS 1 PO daily LEVOTHYROXINE SODIUM 83080167031 Active Ching Clark AMBIEN 10 MG TAB 1/2 PO QHS prn ZOLPIDEM TARTRATE 10311837812 No Longer Active Kimberly Rodriguez PYRIDIUM 200 MG TAB 1 PO TID prn urinary urgency PHENAZOPYRIDINE HCL 25998250500 No Longer Active Neo Arnold CIPRO 500 MG TAB 1 PO BID for 7 days CIPROFLOXACIN HCL 09851221117 No Longer Active Neo Arnold CIPRO 500 MG TAB 1 PO BID for 7 days CIPROFLOXACIN HCL 40858446744 No Longer Active Kimberly STOCKTON'S NASAL SPRAY (DEXAMETHASONE, GENTAMICIN, SALINE) 2 puffs each nostril TID for [address] STOCKTON'S NASAL SPRAY ( DEXAMETHASONE, GENTAMICIN, SALINE) No Longer Active Kimberly Rodriguez AUGMENTIN 500-125 MG TAB 1 PO BID AMOXICILLIN-POT CLAVULANATE 72019499684 No Longer Active Kimberly Rodriguez PRILOSEC 20 MG CAP CR 1 PO daily OMEPRAZOLE 09039550301 No Longer Active Kimberly Rodriguez FOLTX 2.5-25-1 MG TABS 1 po daily FOLIC ACID-VIT B6-VIT B12 08754447222 No Longer Active Kimberly Rodriguez PREDNISONE 20 MG TAB 2 pills at once for 2 days then 1 pill daily for 2 days PREDNISONE 24905243489 No Longer Active Kimberlyana Rodriguez FOSAMAX 70 MG TABS 1 PO Qwk ALENDRONATE SODIUM 74439548035 Active Ching Clark VITAMIN E 400 UNIT CAPS 1 po daily VITAMIN E 69530864241 No Longer Active Kimberlyana Rodriguez PROTONIX 40 MG TBEC 1 po daily PANTOPRAZOLE SODIUM 85031193821 No Longer Active Ching Clark FLORENCE 180 MG TABS 1 PO daily FEXOFENADINE HCL 26146267100 No Longer Active Kimberly Tigist Rodriguez PROTONIX 40 MG TBEC 1 po qd PANTOPRAZOLE SODIUM 90538729368 No Longer Active Kimberly Tigist Rodriguez AMOXICILLIN 500 MG CAP 1 PO TID AMOXICILLIN 43602680685 No Longer Active Kimberly Tigist Rodriguez CHLORPHENIRAMINE MALEATE CR 8 MG CPCR 1 PO Q6hrs prn CHLORPHENIRAMINE MALEATE 47139485483 No Longer Active Kimberly Tigist Rodriguez LUNESTA 2 MG TABS 1 PO QHS prn ESZOPICLONE 46338591064 No Longer Active Kimberly Tigist Rodriguez XANAX 0.25 MG TABS 1 PO Q6hrs prn ALPRAZOLAM 77875281816 No Longer Active Kimberlyana Rodriguez AUGMENTIN 500-125 MG TAB 1 PO BID for 7 days AMOXICILLIN-POT CLAVULANATE 60555032232 No Longer Active Kimberly STOCKTON'S NASAL SPRAY (DEXAMETHASONE, GENTAMICIN, SALINE) 2 puffs each nostril TID DR. STOCKTON'Nicole NASAL SPRAY (DEXAMETHASONE, GENTAMICIN, SALINE) No Longer Active Kimberly Rodriguez MUCINEX 600 MG TB12 1 PO BID for 5 days GUAIFENESIN 73015866728 No Longer Active Kimberly Rodriguez NEXIUM 40 MG CPDR 1 po daily ESOMEPRAZOLE MAGNESIUM 66649508740 No Longer Active Ching Clark VOLTAREN 50 MG TBEC 2 PO QD DICLOFENAC SODIUM 89057076413 No Longer Active Kimberly Tigist Rodriguez ACTONEL 35 MG TABS 1 PO Q week RISEDRONATE SODIUM 14019296948 No Longer Active Ching Clark CALTRATE PLUS 600-200 MG-UNIT TABS 1 PO BID CALCIUM CARBONATE-VIT D- MIN 28399369351 Active Kimberly Tigist Rodriguez CHLORPHENIRAMINE MALEATE CR 8 MG CPCR 1 PO Q6hrs prn CHLORPHENIRAMINE MALEATE 26549690959 No Longer Active Kimberly Tigist Rodriguez PHENERGAN VC/CODEINE 6.25-5-10 MG/5ML SYRP 5 cc PO Q4-6 hrs prn cough CRAWINRCE-[id number]-[id number] 21213464218 No Longer Active Kimberly Tigist Rodriguez ZITHROMAX Z-BRENDA 250 MG TABS 1 daily as directed AZITHROMYCIN 50793165527 No Longer Active Kimberly Tigist Rodriguez LORTAB 5 5-500 MG TABS 1/2 to 1 PO Q4-6hrs prn ACETAMINOPHEN-HYDROCODONE 36257773330 No Longer Active Kimberly Tigist Rodriguez CALCIUM 600 MG TABS 2 po daily CALCIUM 87167321514 No Longer Active Kimberlyana Rodriguez ASPIRIN 81 MG TABS 1 po daily ASPIRIN 16226013192 Active Kimberly Tigist Rodriguez VYTORIN 10-40 MG TABS 1 po daily EZETIMIBE-SIMVASTATIN 24116073219 No Longer Active Ching Clark Immunizations Vaccine [...] E&M - 3141-9 156 [lb_av] Weight Measured Diagnostic Results Date Name Value Unit Range Description Clinical Lists Update: CBC,CMP - Chemistry albumin, serum 4.1 g/dL Estimated Glomerular Filtration Rate (calc) 48 mL/min/1.73m2 urea nitrogen, blood 15 mg/dL calcium, serum 9.8 mg/dL chloride, serum 105 mmol/L carbon dioxide, venous blood 28 mmol/L creatinine, serum 1.12 mg/dL potassium, serum 4.5 mmol/L protein, total, serum 7.0 g/dL aspartate aminotransferase (SGOT), serum 20 U/L alanine aminotransferase (SGPT), serum 21 U/L bilirubin, serum, total 0.3 mg/dL sodium, serum 141 mmol/L anion gap, serum 13 glucose, plasma fasting 94 mg/dL alkaline phosphatase, serum 77 U/L Clinical Lists Update: CBC,CMP - Hematology hemoglobin, blood 14.0 g/dL hematocrit, blood 43.9 % platelet count 288 10*3/mm3 erythrocyte (RBC) count 4.74 10*6/mm3 leukocyte count, blood 7.48 10*3/mm3 mean corpuscular volume, RBC 92.6 fL red blood cell distribution width 13.1 % Clinical Lists Update: CBC,CMP,CHOL,TRIG,TSH,FREE T4,HGA1C - Chemistry creatinine, serum 1.1 mg/dL chloride, serum 101 mmol/L hemoglobin A1C, blood, as % of total hemoglobin 5.8 % thyroid stimulating hormone, serum 1.26 u[iU]/mL potassium, serum 4.7 mmol/L protein, total, serum 6.6 g/dL aspartate aminotransferase (SGOT), serum 15 U/L alanine aminotransferase (SGPT), serum 14 U/L bilirubin, serum, total 0.4 mg/dL triglyceride, serum, fasting 167 mg/dL sodium, serum 137 mmol/L anion gap, serum 10 glucose, plasma fasting 99 mg/dL Estimated Glomerular Filtration Rate (calc) 55 mL/min/1.73m2 thyroxine, serum, free 1.05 ng/dL calcium, serum 9.8 mg/dL urea nitrogen, blood 15 mg/dL alkaline phosphatase, serum 80 U/L albumin, serum 4.2 g/dL cholesterol, serum 165 mg/dL carbon dioxide, venous blood 31.0 mmol/L Clinical Lists Update: CBC,CMP,CHOL,TRIG,TSH,FREE T4,HGA1C - Hematology hematocrit, blood 42.1 % hemoglobin, blood 13.7 g/dL platelet count 281 10*3/mm3 erythrocyte (RBC) count 4.60 10*6/mm3 leukocyte count, blood 10.0 10*3/mm3 mean corpuscular volume, RBC 92 fL red blood cell distribution width 14.4 % Clinical Lists Update: CMP,FLP,TSH,Free 4 - Chemistry Estimated Glomerular Filtration Rate (calc) 63 mL/min/1.73m2 glucose, plasma fasting 102 mg/dL cholesterol/HDL ratio, serum, percent 3.5 anion gap, serum 12 sodium, serum 138 mmol/L triglyceride, serum, fasting 212 mg/dL bilirubin, serum, total 0.4 mg/dL alanine aminotransferase (SGPT), serum 15 U/L aspartate aminotransferase (SGOT), serum 16 U/L protein, total, serum 6.9 g/dL potassium, serum [...] serum 62 U/L albumin, serum 4.3 g/dL Clinical Lists Update: ER LABS - Chemistry sodium, serum 140 mmol/L albumin, serum 4.4 g/dL Estimated Glomerular Filtration Rate (calc) 51 mL/min/1.73m2 bilirubin, serum, total 0.4 mg/dL alanine aminotransferase (SGPT), serum 16 U/L aspartate aminotransferase (SGOT), serum 19 U/L protein, total, serum 7.5 g/dL potassium, serum 3.9 mmol/L creatinine, serum 1.06 mg/dL carbon dioxide, venous blood 28 mmol/L chloride, serum 103 mmol/L calcium, serum 9.8 mg/dL urea nitrogen, blood 19 mg/dL alkaline phosphatase, serum 77 U/L glucose, plasma fasting 100 mg/dL Clinical Lists Update: ER LABS - Hematology leukocyte count, blood 15.8 10*3/mm3 mean corpuscular volume, RBC 90 fL red blood cell distribution width 14.0 % erythrocyte (RBC) count 5.15 10*6/mm3 hematocrit, blood 47 % hemoglobin, blood 15.1 g/dL platelet count 287 10*3/mm3 Clinical Lists Update: ER LABS - Urinalysis blood in urine (hemoglobin) by dipstick 5+ protein, urine, semiquantitative (dipstick) 3+ epithelial cells, urine none /[LPF] hyaline casts, urine none /[LPF] bacteria, urine microscopy large RBC urine by microscopy 25-50 WBC urine on microscopy TNTC {Cells}/[HPF] appearance, urine Cloudy Yellow urobilinogen, urine, semiquantitative (dipstick) normal specific gravity, urine 1.020 pH, urine, semiquantitative 5 nitrite, urine, semiquantitative neg glucose, urine, semiquantitative neg bilirubin, urine neg ketones, urine, by test strip neg mucus on urinalysis neg Clinical Lists Update: UA - Urinalysis blood in urine (hemoglobin) by dipstick trace protein, urine, semiquantitative (dipstick) neg epithelial cells, urine 0-5 /[LPF] hyaline casts, urine none /[LPF] bacteria, urine microscopy trace RBC urine by microscopy 3-5 WBC urine on microscopy 5-10 {Cells}/[HPF] appearance, urine Clear Yellow urobilinogen, urine, semiquantitative (dipstick) 0.2 specific gravity, urine 1.015 pH, urine, semiquantitative 5.0 nitrite, urine, semiquantitative neg ketones, urine, by test strip neg bilirubin, urine neg glucose, urine, semiquantitative neg protein, urine, semiquantitative (dipstick) neg blood in urine (hemoglobin) by dipstick trace mucus on urinalysis none epithelial cells, urine none /[LPF] hyaline casts, urine none /[LPF] bacteria, urine microscopy trace RBC urine by microscopy 3-5 WBC urine on microscopy 0-2 {Cells}/[HPF] appearance, urine Clear yellow urobilinogen, urine, semiquantitative (dipstick) 0.2 specific gravity, urine 1.020 pH, urine, semiquantitative 7.5 nitrite, urine, semiquantitative neg ketones, urine, by test strip neg bilirubin, urine neg glucose, urine, semiquantitative neg mucus on urinalysis 1+ Encounters Code Encounter Date Provider Facility CPT-17265 Ofc Vst, Est Level III 17:38:44 CDT Kimberlyana Rodriguez, DO, FACP CPT-31822 Ofc Vst, Est Level III 17:20:03 CDT Kimberlyana Rodriguez DO, FACP CPT-81060 Ofc Vst, Est Level III 16:19:16 CDT Kimberlyana Rodriguez [facility] CPT-35329 Ofc Vst, Est Level III 16:38:23 CDT Kimberlyana Rodriguez [facility] CPT-72775 Ofc Vst, Est Level IV 15:59:17 CDT Kimberlyana Rodriguez, DO, FACP CPT-07459 Ofc Vst, Est Level III 19:15:57 CONSULTING ANALYST Kimberly Rodriguez, DO, FACP CPT-96513 Ofc Vst, Est Level IV 14:33:29 CDT Kimberly Rodriguez, DO, FACP CPT-09247 Ofc Vst, Est Level III 14:18:55 CDT Kimberly Rodriguez, DO, FACP CPT-16837 Ofc Vst, Est Level III 14:29:28 CDT Kimberlyana Rodriguez, DO, FACP CPT-62064 Ofc Vst, Est Level III 14:18:14 CONSULTING ANALYST Kimberly Rodriguez, DO, FACP CPT-91377 Ofc Vst, Est Level III 12:56:50 CONSULTING ANALYST Kimberly Rodriguez, DO, FACP CPT-40086 Ofc Vst, Est Level III 14:31:59 CONSULTING ANALYST Kimberly Rodriguez, DO, FACP CPT-09381 Ofc Vst, Est Level IV 14:38:02 CDT [facility] Ofc Vst, Est Level IV 11:06:37 CDT Kimberly Tigist [facility] CPT-05074 Ofc Vst, Est Level V 19:09:08 [facility] Ofc Vst, Est Level IV 14:13:44 CD[facility]-74624 Ofc Vst, Est Level IV 16:38:00 CDT Kimberly [facility] CPT-05136 Ofc Vst, Est Level IV 15:28:06 CD[facility] Ofc Vst, Est Level V 10:25:43 CONSULTING ANALYST [facility], FACP CPT-49657 Ofc Vst, Est Level IV 16:36:02 CONSULTING ANALYST [facility] CPT-65502 Ofc Vst, Est Level III 11:21:46 CDT Kimberly Tigist Mckinleyi Nicole Jennifer DO, FACP CPT-34807 Ofc Vst, Est Level IV 11:12:07 CDT Kimberly Tigist Rivera Jennifer DO, FACP CPT-59445 Ofc Vst, Est Level IV 15:12:49 CD[facility] CPT-10756 Ofc Vst, Est Level IV 16:05:13 CDT [facility] CPT-34653 Ofc Vst, Est Level IV 15:38:00 CONSULTING ANALYST [facility] CPT-68644 Ofc Vst, Est Level IV 15:28:18 CDT Kimberly Tigist Rodriguez [facility] CPT-05579 Ofc Vst, Est Level V 16:06:33 CDT Kimberlyana Rodriguez [facility] CPT-32678 Ofc Vst, Est Level IV 14:09:30 CONSULTING ANALYST Kimberly Rivera Jennifer, DO, FACP CPT-03236 Ofc Vst, Est Level III 14:02:58 CONSULTING ANALYST Kimberlyana Rivera Jennifer, DO, FACP CPT-44612 Ofc Vst, Est Level III 15:30:02 CDT Kimberly Tigist Benderner Kimberly Nicole Jennifer, DO, FACP CPT-72806 Ofc Vst, Est Level IV 13:43:23 CDT Kimberlyana Benderner Kimberly Nicole Jennifer, DO, FACP CPT-86219 Ofc Vst, Est Level IV 16:04:52 CDT Kimberlyana Rivera Jennifer, DO, FACP CPT-10877 Ofc Vst, Est Level IV 17:02:51 CDT Kimberlyana Benderner Kimberly Rivera Jennifer, DO, FACP CPT-34915 Ofc Vst, Est Level V 04:47:48 CONSULTING ANALYST Kimberly Benderner Kimberlyana Rodriguez, DO, FACP CPT-44159 Ofc Vst, Est Level IV 15:16:18 CONSULTING ANALYST Kimberly Benderner Kimberly Rivera Jennifer, DO, FACP CPT-77362 Ofc Vst, Est Level IV 10:56:19 CONSULTING ANALYST Kimberly Tigistelder Rodriguez [facility] [place] CPT-38825 Ofc Vst, Est Level IV 16:11:38 CDT Kimberly Rodriguez [facility] [place] CPT-11175 Ofc Vst, Est Level IV 17:21:05 CDT Kimberly Rodriguez [facility] [place] CPT-92883 Ofc Vst, Est Level III 15:33:15 CONSULTING ANALYST Kimberly Tigistelder Rodriguez [facility] [place] CPT-61496 Ofc Vst, Est Level III 10:07:06 CONSULTING ANALYST Kimberly Rodriguez [facility] [place] CPT-90711 Ofc Vst, New Level IV 13:08:11 CDT Kimberly Rodriguez [facility] [place] Procedures Code Procedure Name Date Entry Date Standard Description CPT-G0439 Medicare Annual Wellness Visit 20:23:19 CONSULTING ANALYST CPT-G8443 E-Prescribing Medication Sent 19:15:57 CONSULTING ANALYST CPT-G8443 E-Prescribing Medication Sent 14:33:29 CDT CPT-G8446 E-Prescribing not done due to controlled substance 14:18 :55 CDT CPT-77654 Injection, Pneumovax 14:18:55 CDT CPT-G8443 E-Prescribing Medication Sent 14:29:28 CDT CPT-G8445 E-Prescribing Not sent due to no medication given 15:31: 45 CDT CPT-G0438 Medicare Annual Wellness Visit Initial 15:31:45 CDT CPT-G8445 E-Prescribing Not sent due to no medication given 14:18: 14 CONSULTING ANALYST CPT-G8443 E-Prescribing Medication Sent 12:56:50 CONSULTING ANALYST CPT-G8443 E-Prescribing Medication Sent 14:31:59 CONSULTING ANALYST CPT-G8443 E-Prescribing Medication Sent 14:38:02 CDT CPT-76803 Injection 11:21:46 CDT CPT-87965 EKG w/ Interpretation 17:21:05 CDT
--- OUTSIDE RECORDS SUMMARY | 2018-07-16 17:13 | XMS REPORT | Continuity of Care Document ---
Author Author [facility] Organization [facility] Address Unknown Phone Unavailable Allergies Active Description Code Type Severity Reaction Onset Reported/Identified Relationship to Patient Clinical Status Yes mercury (elemental) [id number] Drug Allergy Unknown ALLERGIC TO OMAR Medications There is no data. Problems Date Dx Coded Attending Type Code Diagnosis Diagnosed By 05/11/2010 Ot 789.00 05/11/2010 Ot 791.9 05/01/2012 Ot 244.9 HYPOTHYROIDISM NOS 05/01/2012 Ot 272.4 HYPERLIPIDEMIA NEC/NOS 05/01/2012 Ot 401.9 HYPERTENSION NOS 05/01/2012 Ot 414.01 CORONARY ATHEROSCLEROSIS OF [place] CORON 05/01/2012 Ot 786.50 CHEST PAIN NOS 05/01/2012 Ot V12.54 PERSONAL HX OF TIA, CEREBRAL INFARCTION 05/01/2012 Ot V17.49 FAMILY HISTORY OF OTHER CARDIOVASCULAR D 05/01/2012 Ot V45.82 PERCUTANEOUS TRANSLUM CORON ANGIOPLASTY 05/01/2012 Ot V58.63 LONG-TERM( CURRENT)USE OF ANTIPLATELET/AN 05/01/2012 Ot V58.66 LONG-TERM ( CURRENT) USE OF ASPIRIN 05/01/2012 Ot V58.69 OTH MED,LT, CURRENT USE 11/15/2014 KADEN SABILLON, JUVENAL Sumner Ot 599.0 URIN TRACT INFECTION NOS 11/15/2014 KADEN SABILLON, JUVENAL [place] Ot 789.09 ABDOMINAL PAIN, OTHER SPECIFIED SITE 12/26/2014 CAITLYN MONSALVE DO Ot V76.12 01/12/2015 CAITLYN MONSALVE DO Ot V76.12 02/28/2015 Ot 786.09 02/28/2015 Ot 244.9 02/28/2015 Ot 272.1 02/28/2015 Ot 414.01 02/28/2015 Ot 533.90 02/28/2015 Ot 577.1 02/28/2015 Ot 782.5 02/28/2015 Ot 786.09 02/28/2015 Ot 790.6 02/28/2015 Ot V76.12 02/28/2015 Ot 577.0 02/28/2015 Ot 733.90 02/28/2015 Ot V76.12 02/28/2015 Ot 599.70 02/28/2015 Ot 789.09 02/28/2015 Ot V76.12 02/28/2015 JENNIFER DO CAITLYN Ot 611.71 02/28/2015 MONSALVE DO CAITLYN Ot V76.12 02/28/2015 JENNIFER DO CAITLYN Ot V76.12 03/01/2015 SHAWN SABILLON, AMBER J Ot 272.4 03/01/2015 SHAWN SABILLON, AMBER [place] Ot 401.9 03/01/2015 SHAWN SABILLON, AMBER [place] Ot 414.9 03/01/2015 SHAWN SABILLON, AMBER [place] Ot 786.50 03/22/2015 SHAWN SABILLON, AMBER J Ot 272.4 03/22/2015 SHAWN SABILLON, AMBER J Ot 401.9 03/22/2015 SHAWN SABILLON, AMBER [place] Ot 414.9 03/22/2015 SHAWN SABILLON, AMBER [place] Ot 786.50 03/22/2015 SHAWN SABILLON, AMBER [place] Ot 272.4 03/22/2015 SHAWN SABILLON, AMBER J Ot 401.9 03/22/2015 SHAWN SABILLON, AMBER [place] Ot 414.00 03/22/2015 SHAWN SABILLON, AMBER [place] Ot 786.50 09/28/2015 JENNIFER NGUYEN CAITLYN Ot E03.9 HYPOTHYROIDISM, UNSPECIFIED 09/28/2015 JENNIFER NGUYEN CAITLYN Ot E78.5 HYPERLIPIDEMIA, UNSPECIFIED 09/28/2015 JENNIFER DO CAITLYN Ot I10 ESSENTIAL (PRIMARY) HYPERTENSION 09/28/2015 JENNIFER NGUYEN CAITLYN Ot I25.10 ATHSCL HEART DISEASE OF [place] CORONARY 09/28/2015 JENINFER NGUYEN CAITLYN Ot I65.23 OCCLUSION AND STENOSIS OF [place] 09/28/2015 JENNIFER DO CAITLYN Ot K21.9 GASTRO-ESOPHAGEAL REFLUX DISEASE WITHOUT 09/28/2015 JENNIFER DO CAITLYN Ot M54.9 DORSALGIA, UNSPECIFIED 09/28/2015 JENNIFER DO CAITLYN Ot R20.0 ANESTHESIA OF SKIN 09/28/2015 JENNIFER DO CAITLYN Ot R51 HEADACHE 09/28/2015 JENNIFER NGUYEN CAITLYN Ot Z95.5 PRESENCE OF CORONARY ANGIOPLASTY IMPLANT 09/28/2015 MONSALVECAITLYN SANCHEZ DO Ot E03.9 HYPOTHYROIDISM, UNSPECIFIED 09/28/2015 MONSALVECAITLYN SANCHEZ DO Ot E78.5 HYPERLIPIDEMIA, UNSPECIFIED 09/28/2015 MONSALVECAITLYN SANCHEZ DO Ot I10 ESSENTIAL (PRIMARY) HYPERTENSION 09/28/2015 MONSALVECAITLYN SANCHEZ DO Ot I25.10 ATHSCL HEART DISEASE OF [place] CORONARY 09/28/2015 MONSALVECAITLYN SANCHEZ DO Ot I65.23 OCCLUSION AND STENOSIS OF [place]AL [place] 09/28/2015 MONSALVECAITLYN SANCHEZ DO Ot K21.9 GASTRO-ESOPHAGEAL REFLUX DISEASE WITHOUT 09/28/2015 MONSALVECAITLYN SANCHEZ DO Ot M54.9 DORSALGIA, UNSPECIFIED 09/28/2015 CAITLYN MONSALVE DO Ot R20.0 ANESTHESIA OF SKIN 09/28/2015 CAITLYN MONSALVE DO Ot R51 HEADACHE 09/28/2015 MONSALVECAITLYN SANCHEZ DO Ot Z95.5 PRESENCE OF CORONARY ANGIOPLASTY IMPLANT 02/05/2016 LASHAE CONLEY MD Ot M50.13 CERVICAL DISC DISORDER W RADICULOPATHY, 02/05/2016 LASHAE CONLEY MD Ot Z79.899 OTHER GROUP HOME (CURRENT) DRUG THERAPY 02/09/2016 Ot 733.90 BONE CARTILAGE DIS NOS 02/09/2016 Ot V76.12 OTH SCREEN MAMMO-MALIGN NEOPLASM OF [place] 02/09/2016 Ot 599.70 HEMATURIA, UNSPECIFIED 02/09/2016 Ot 789.09 ABDOMINAL PAIN, OTHER SPECIFIED SITE 02/09/2016 Ot V76.12 OTH SCREEN MAMMO-MALIGN NEOPLASM OF [place] 02/09/2016 CAITLYN MONSALVE DO Ot 611.71 MASTODYNIA 02/09/2016 CAITLYN MONSALVE DO Ot V76.12 OTH SCREEN MAMMO-MALIGN NEOPLASM OF [place] 02/09/2016 AMBER ESCOBAR MD Ot 272.4 HYPERLIPIDEMIA NEC/NOS 02/09/2016 AMBER ESCOBAR MD Ot 401.9 HYPERTENSION NOS 02/09/2016 AMBER ESCOBAR MD Ot 414.9 CHR ISCHEMIC HRT DIS NOS 02/09/2016 AMBER ESCOBAR MD Ot 786.50 CHEST PAIN NOS 02/09/2016 AMBER ESCOBAR MD Ot 272.4 HYPERLIPIDEMIA NEC/NOS 02/09/2016 AMBER ESCOBAR MD, Ot 401.9 HYPERTENSION NOS 02/09/2016 AMBER ESCOBAR MD Ot 414.00 CORON ATHEROSCLER NOS TYPE VESSEL, NATIV 02/09/2016 AMBER ESCOBAR MD Ot 786.50 CHEST PAIN NOS 02/09/2016 JENNIFER NGUYEN CAITLYN Ot V76.12 OTH SCREEN MAMMO-MALIGN NEOPLASM OF [place] 02/12/2016 LASHAE CONLEY MD, Ot M50.13 CERVICAL DISC DISORDER W RADICULOPATHY, 02/12/2016 LASHAE CONLEY MD, Ot Z79.899 OTHER GROUP HOME (CURRENT) DRUG THERAPY 03/25/2016 LASHAE CONLEY 723.1 CERVICALGIA 03/25/2016 LASHAE CONLEY M54.2 CERVICALGIA 05/27/2016 LASHAE CONLEY MD, Ot M50.13 CERVICAL DISC DISORDER W RADICULOPATHY, 06/19/2016 LASHAE CONLEY MD, Ot M50.13 CERVICAL DISC DISORDER W RADICULOPATHY, 07/19/2016 JOHNNY VALLEJO MD Ot Z01.818 ENCOUNTER FOR OTHER PREPROCEDURAL EXAMIN 07/22/2016 JOHNNY VALLEJO MD, Ot Z01.818 ENCOUNTER FOR OTHER PREPROCEDURAL EXAMIN 07/24/2016 JOHNNY VALLEJO MD Ot K57.90 DVRTCLOS OF INTEST, PART UNSP, W/O PERF 07/24/2016 JOHNNY VALLEJO MD, Ot K64.1 SECOND DEGREE HEMORRHOIDS 07/24/2016 JOHNNY VALLEJO MD Ot Z12.11 ENCOUNTER FOR SCREENING FOR MALIGNANT NE 07/24/2016 JOHNNY VALLEJO MD Ot Z80.0 FAMILY HISTORY OF MALIGNANT NEOPLASM OF 07/28/2016 SHLOMO HANSEN APRN Ot I25.10 ATHSCL HEART DISEASE OF [place] CORONARY 07/28/2016 SHLOMO HANSEN APRN Ot K57.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 07/28/2016 SHLOMO HANSEN APRN Ot N39.0 URINARY TRACT INFECTION, SITE NOT SPECIF 07/28/2016 SHLOMO HANSEN APRN Ot R10.31 RIGHT LOWER QUADRANT PAIN 07/28/2016 SHLOMO HANSEN APRN Ot Z79.82 POWER MULE OPERATOR (CURRENT) USE OF ASPIRIN 07/28/2016 SHLOMO HANSEN APRN Ot Z79.899 OTHER POWER MULE OPERATOR (CURRENT) DRUG THERAPY 07/28/2016 SHLOMO HANSEN APRN Ot Z95.5 PRESENCE OF CORONARY ANGIOPLASTY IMPLANT 07/29/2016 SHLOMO HANSEN APRN Ot I25.10 ATHSCL HEART DISEASE OF [place] CORONARY 07/29/2016 SHLOMO HANSEN APRN Ot K57.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 07/29/2016 SHLOMO HANSEN APRN Ot N39.0 URINARY TRACT INFECTION, SITE NOT SPECIF 07/29/2016 SHLOMO HANSEN APRN Ot R10.31 RIGHT LOWER QUADRANT PAIN 07/29/2016 SHLOMO HANSEN APRN Ot Z79.82 POWER MULE OPERATOR (CURRENT) USE OF ASPIRIN 07/29/2016 SHLOMO HANSEN APRN Ot Z79.899 OTHER POWER MULE OPERATOR (CURRENT) DRUG THERAPY 07/29/2016 SHLOMO HANSEN APRN Ot Z95.5 PRESENCE OF CORONARY ANGIOPLASTY IMPLANT 07/30/2016 JOHNNY VALLEJO MD Ot K57.90 DVRTCLOS OF INTEST, PART UNSP, W/O PERF 07/30/2016 JOHNNY VALLEJO MD Ot K64.1 SECOND DEGREE HEMORRHOIDS 07/30/2016 JOHNNY VALLEJO MD Ot Z12.11 ENCOUNTER FOR SCREENING FOR MALIGNANT NE 07/30/2016 JOHNNY VALLEJO MD Ot Z80.0 FAMILY HISTORY OF MALIGNANT NEOPLASM OF 08/02/2016 SHLOMO HANSEN APRN Ot I25.10 ATHSCL HEART DISEASE OF [place] CORONARY 08/02/2016 SHLOMO HANSEN APRN Ot K57.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 08/02/2016 SHLOMO HANSEN APRN Ot N39.0 URINARY TRACT INFECTION, SITE NOT SPECIF 08/02/2016 SHLOMO HANSEN APRN Ot R10.31 RIGHT LOWER QUADRANT PAIN 08/02/2016 SHLOMO HANSEN APRN Ot Z79.82 GROUP HOME (CURRENT) USE OF ASPIRIN 08/02/2016 SHLOMO HANSEN APRN Ot Z79.899 OTHER GROUP HOME (CURRENT) DRUG THERAPY 08/02/2016 SHLOMO HANSEN APRN Ot Z95.5 PRESENCE OF CORONARY ANGIOPLASTY IMPLANT 06/26/2017 Ot V76.12 OTH SCREEN MAMMO-MALIGN NEOPLASM OF [place] 06/26/2017 JENNIFER NGUYEN CAITLYN Ot 611.71 MASTODYNIA 06/26/2017 TONYA MONSALVE DOI Ot V76.12 OTH SCREEN MAMMO-MALIGN NEOPLASM OF [place] 06/26/2017 AMBER ESCOBAR MD Ot 272.4 HYPERLIPIDEMIA NEC/NOS 06/26/2017 AMBER ESCOBAR MD Ot 401.9 HYPERTENSION NOS 06/26/2017 AMBER ESCOBAR MD Ot 414.9 CHR ISCHEMIC HRT DIS NOS 06/26/2017 AMBER ESCOBAR MD Ot 786.50 CHEST PAIN NOS 06/26/2017 AMBER ESCOBAR MD Ot 272.4 HYPERLIPIDEMIA NEC/NOS 06/26/2017 AMBER ESCOBAR MD Ot 401.9 HYPERTENSION NOS 06/26/2017 AMBER ESCOBAR MD Ot 414.00 CORON ATHEROSCLER NOS TYPE VESSEL, NATIV 06/26/2017 AMBER ESCOBAR MD Ot 786.50 CHEST PAIN NOS 06/26/2017 TONYA MONSALVE DOI Ot V76.12 OTH SCREEN MAMMO-MALIGN NEOPLASM OF [place] 07/01/2017 JENNIFER NGUYEN CAITLYN Ot M54.6 PAIN IN THORACIC SPINE 07/01/2017 JENNIFER NGUYEN CAITLYN Ot M54.6 PAIN IN THORACIC SPINE 07/22/2017 JENNIFER NGUYEN CAITLYN Ot M54.6 PAIN IN THORACIC SPINE 03/26/2018 JENNIFER NGUYEN CAITLYN Ot Z12.31 ENCNTR SCREEN MAMMOGRAM FOR MALIGNANT NE 03/31/2018 JENNIFER NGUYEN CAITLYN Ot 611.71 MASTODYNIA 03/31/2018 TONYA MONSALVE DOI Ot V76.12 OTH SCREEN MAMMO-MALIGN NEOPLASM OF [place] 03/31/2018 AMBER ESCOBAR MD Ot 272.4 HYPERLIPIDEMIA NEC/NOS 03/31/2018 AMBER ESCOBAR MD Ot 401.9 HYPERTENSION NOS 03/31/2018 AMBER ESCOBAR MD Ot 414.9 CHR ISCHEMIC HRT DIS NOS 03/31/2018 AMBER ESCOBAR MD Ot 786.50 CHEST PAIN NOS 03/31/2018 AMBER ESCOBAR MD Ot 272.4 HYPERLIPIDEMIA NEC/NOS 03/31/2018 AMBER ESCOBAR MD Ot 401.9 HYPERTENSION NOS 03/31/2018 AMBER ESCOBAR MD Ot 414.00 CORON ATHEROSCLER NOS TYPE VESSEL, NATIV 03/31/2018 SHAWN SABILLON, AMBER [place] Ot 786.50 CHEST PAIN NOS 03/31/2018 CAITLYN MONSALVE DO Ot V76.12 OTH SCREEN MAMMO-MALIGN NEOPLASM OF [place] 03/31/2018 TONYA MONSALVE DOI Ot M54.6 PAIN IN THORACIC SPINE 03/31/2018 MONSALVETONYA SANCHEZ DOI Ot Z12.31 ENCNTR SCREEN MAMMOGRAM FOR MALIGNANT NE 04/01/2018 TONYA MONSALVE DOI Ot Z12.31 ENCNTR SCREEN MAMMOGRAM FOR MALIGNANT NE 04/24/2018 MONSALVECAITLYN SANCHEZ DO Ot Z12.31 ENCNTR SCREEN MAMMOGRAM FOR MALIGNANT NE 05/15/2018 CAITLYN MONSALVE DO Ot M25.551 PAIN IN RIGHT HIP 05/15/2018 CAITLYN MONSALVE DO Ot W11.XXXA FALL ON AND FROM LADDER, INITIAL ENCOUNT 07/15/2018 MANUEL MATOS Ot E78.5 HYPERLIPIDEMIA, UNSPECIFIED 07/15/2018 MANUEL MATOS Ot I07.1 RHEUMATIC TRICUSPID INSUFFICIENCY 07/15/2018 MANUEL MATOS Ot I10 ESSENTIAL (PRIMARY) HYPERTENSION 07/15/2018 MANUEL MATOS Ot I25.10 ATHSCL HEART DISEASE OF [place] CORONARY 07/15/2018 MANUEL MATOS Ot I65.29 OCCLUSION AND STENOSIS OF UNSPECIFIED CA 07/16/2018 MANUEL MATOS Ot E78.5 HYPERLIPIDEMIA, UNSPECIFIED 07/16/2018 MANUEL MATOS Ot I10 ESSENTIAL (PRIMARY) HYPERTENSION 07/16/2018 MANUEL MATOS Ot I25.10 ATHSCL HEART DISEASE OF [place] CORONARY Procedures There is no data. Results Test Result Range Complete blood count (CBC) with automated white blood cell (WBC) differential - 07/28/16 15:00 Blood leukocytes automated count (number/volume) 10.9 10*3/uL 4.3-11.0 Blood erythrocytes automated count (number/volume) 5.17 10*6/uL 4.35-5.85 Venous blood hemoglobin measurement (mass/volume) 14.8 g/dL 11.5-16.0 Blood hematocrit (volume fraction) 45 % 35-52 Automated erythrocyte mean corpuscular volume 88 [foz_us] 80-99 Automated erythrocyte mean corpuscular hemoglobin (mass per erythrocyte) 29 pg 25-34 Automated erythrocyte mean corpuscular hemoglobin concentration measurement ( mass/volume) 33 g/dL 32-36 Automated erythrocyte distribution width ratio 13.2 % 10.0-14.5 Automated blood platelet count (count/volume) 328 10*3/uL 130-400 Automated blood platelet mean volume measurement 10.3 [foz_us] 7.4-10.4 Automated blood neutrophils/100 leukocytes 59 % 42-75 Automated blood lymphocytes/100 leukocytes 30 % 12-44 Blood monocytes/100 leukocytes 8 % 0-12 Automated blood eosinophils/100 leukocytes 3 % 0-10 Automated blood basophils/100 leukocytes 1 % 0-10 Blood neutrophils automated count (number/volume) 6.4 10*3 1.8-7.8 Blood lymphocytes automated count (number/volume) 3.3 10*3 1.0-4.0 Blood monocytes automated count (number/volume) 0.9 10*3 0.0-1.0 Automated eosinophil count 0.3 10*3/uL 0.0-0.3 Automated blood basophil count (count/volume) 0.1 10*3/uL 0.0-0.1 Whole blood basic metabolic panel - 07/28/16 15:00 Serum or plasma sodium measurement (moles/volume) 141 mmol/L 135-145 Serum or plasma potassium measurement (moles/volume) 3.5 mmol/L 3.6-5.0 Serum or plasma chloride measurement (moles/volume) 104 mmol/L 98-107 Carbon dioxide 23 mmol/L 21-32 Serum or plasma anion gap determination (moles/volume) 14 mmol/L 5-14 Serum or plasma urea nitrogen measurement (mass/volume) 19 mg/dL 7-18 Serum or plasma creatinine measurement (mass/volume) 0.96 mg/dL 0.60-1.30 Serum or plasma urea nitrogen/creatinine mass ratio 20 NRG Serum or plasma creatinine measurement with calculation of estimated glomerular filtration rate 57 NRG Serum or plasma glucose measurement (mass/volume) 93 mg/dL 70-105 Serum or plasma calcium measurement (mass/volume) 9.5 mg/dL 8.5-10.1 Complete urinalysis with reflex to culture - 07/28/16 15:55 Urine color determination YELLOW NRG Urine clarity determination SLIGHTLY CLOUDY NRG Urine pH measurement by test strip 5 5-9 Specific gravity of urine by test strip 1.025 1.016- 1.022 Urine protein assay by test strip, semi-quantitative 1+ NEGATIVE Urine glucose detection by automated test strip NEGATIVE NEGATIVE Erythrocytes detection in urine sediment by light microscopy 3+ NEGATIVE Urine ketones detection by automated test strip NEGATIVE NEGATIVE Urine nitrite detection by test strip NEGATIVE NEGATIVE Urine total bilirubin detection by test strip NEGATIVE NEGATIVE Urine urobilinogen measurement by automated test strip (mass/volume) NORMAL NORMAL Urine leukocyte esterase detection by dipstick 3+ NEGATIVE Automated urine sediment erythrocyte count by microscopy (number/high power field) NONE NRG Automated urine sediment leukocyte count by microscopy (number/high power field ) [HPF] NRG Bacteria detection in urine sediment by light microscopy FEW NRG Squamous epithelial cells detection in urine sediment by light microscopy 10-25 NRG Crystals detection in urine sediment by light microscopy NONE NRG Casts detection in urine sediment by light microscopy NONE NRG Mucus detection in urine sediment by light microscopy NEGATIVE NRG Complete urinalysis with reflex to culture YES NRG Bacterial urine culture - 07/28/16 15:55 Bacterial urine culture [id number] NRG COLONY COUNT 10,000/ML - 100,000/ML NRG FTX;REPORTABLE PLUS, NRG FREE TEXT ENTRY 2 MIXED GRAM POSITIVES <10,000/ML NRG Bacterial susceptibility panel - 07/28/16 15:55 Gentamicin susceptibility test by minimum inhibitory concentration S NRG Vancomycin susceptibility test by minimum inhibitory concentration 1 NRG Levofloxacin susceptibility test by minimum inhibitory concentration 0.5 NRG Tetracycline susceptibility test by minimum inhibitory concentration >= NRG Ampicillin susceptibility test by minimum inhibitory concentration < = NRG Nitrofurantoin susceptibility test by minimum inhibitory concentration <= NRG Linezolid susceptibility test by minimum inhibitory concentration 2 NRG Free T4 - 11/28/17 06:53 Free T4 1.05 ng/dL 0.81-1.61 Thyroid Stimulating Hormone - 11/28/17 06:53 TSH 1.73 mIU/mL 0.32-5.00 Thyroid Stimulating Hormone - 05/27/18 08:12 TSH 1.89 mIU/mL 0.32-5.00 Encounters ACCT No. Visit Date/Time Discharge Status Pt. Type Provider Facility Loc./Unit Complaint [id number] 08/29/2016 09:11:14 08/29/2016 23:59:59 CLS Outpatient Marianna Fraser S [id number] 08/13/2016 11:17:28 08/13/2016 23:59:59 CLS Outpatient Marianna Fraser S [id number] 03/01/2015 09:26:03 ACT Document Registration [id number] 05/27/2018 08:06:00 05/27/2018 23:59:00 DIS Outpatient Monsalve, Caitlyn [id number] 11/28/2017 06:36:00 11/28/2017 23:59:00 DIS Outpatient Jennifer Caitlyn [id number] 03/25/2016 09:44:00 05/07/2016 10:40:00 DIS Outpatient YAEL LASHAE [id number] 06/25/2018 08:01:00 06/25/2018 23:59:59 CLS Preadmit SONAL NUÑEZ DO [facility] RAD M54.12 RADICULOPATHY [id number] 05/14/2018 13:55:00 05/14/2018 23:59:59 CLS Outpatient MONSALVE DO, CAITLYN [facility] RAD M25.551 [id number] 03/31/2018 09:13:00 03/31/2018 23:59:59 CLS Outpatient MONSALVE DO, CAITLYN [facility] RAD SCREENING [id number] 12/02/2017 16:12:00 12/02/2017 23:59:59 CLS Preadmit MONSALVE DO, CAITLYN [facility] RAD SCREENING [id number] 06/26/2017 14:55:00 06/26/2017 23:59:59 CLS Outpatient MONSALVE DO, CAITLYN [facility] RAD M54.6 [id number] 07/28/2016 14:59:00 07/28/2016 16:42:00 DIS Emergency SHLOMO HANSEN APRN [facility] ER R SIDE PAIN, BY KIDNEYS [id number] 07/24/2016 09:45:00 07/24/2016 12:45:00 DIS Outpatient JOHNNY VALLEJO MD [facility] ENDO DIVERTICULITIS [id number] 07/19/2016 05:37:00 07/19/2016 10:14:00 DIS Outpatient JOHNNY VALLEJO MD [facility] PREOP HISTORY DIVERTICULITIS [id number] 05/27/2016 12:32:00 05/27/2016 13:40:00 DIS Outpatient LASHAE CONLEY MD [facility] CARD DISC DISORDER [id number] 02/05/2016 12:24:00 02/05/2016 14:01:00 DIS Outpatient LASHAE CONLEY MD [facility] CARD M50.13 [id number] 09/27/2015 19:51:00 09/28/2015 18:15:00 DIS Inpatient CAITLYN MONSALVE DO [facility] 4TH STROKE LIKE SYMPTOMS; HEADACHE;HTN;H/O CAD [id number] 03/01/2015 07:38:00 03/01/2015 23:59:59 CLS Outpatient AMBER ESCOBAR MD [facility] CARD CAD CP HTN HLE [id number] 02/28/2015 13:26:00 02/28/2015 23:59:59 CLS Outpatient AMBER ESCOBAR MD [facility] CARD CAD CP HTN HLE [id number] 12/22/2014 11:00:00 12/22/2014 23:59:59 CLS Outpatient CAITLYN MONSALVE DO [facility] RAD SCREENNG [id number] 11/15/2014 10:17:00 11/15/2014 13:30:00 DIS Emergency JUVENAL ALFONSO MD [facility] ER RIGHT FLANK PAIN [id number] 10/02/2014 13:00:00 10/02/2014 23:59:59 CLS Outpatient ANTHONY ELY [facility] QUICK [id number] 09/07/2013 07:30:00 09/07/2013 23:59:59 CLS Outpatient CAITLYN MONSALVE DO [facility] RAD PINCHING IN BREAST [id number] 07/16/2018 16:30:00 ACT Inpatient TONYA MONSALVE DOI [facility] 4TH PNUEMONIA [id number] 07/15/2018 06:53:00 ACT Outpatient MANUEL MATOS [facility] CARD CAD,HTN,CAROTID ARTERY STENOSIS [id number] 07/14/2018 08:38:00 ACT Outpatient MANUEL MATOS [facility] CARD CAD,HTN,CAROTID ARTERY STENOSIS [id number] 05/01/2012 06:34:00 Document Registration [id number] 03/25/2012 09:11:00 Document Registration [id number] 12/10/2011 11:31:00 Document Registration [id number] 11/15/2010 10:41:00 Document Registration [id number] 05/14/2010 12:35:00 Document Registration [id number] 05/11/2010 15:21:00 Document Registration [id number] 10/12/2009 08:50:00 Document Registration [id number] 10/02/2009 08:41:00 Document Registration [id number] 09/27/2009 13:52:00 Document Registration
[2018-07-16] MEDS ORDERED: RT-ALBUTEROL SULF 2.5 MG/3 ML PRE-MIX VIAL INH NR (17:16)
[2018-07-16] MEDS ORDERED: PIPERACILLIN SODIUM/TAZOBACTAM 4.5 GM in NS (IVPB) 100 ML IV NR (17:18)
[2018-07-16] MEDS ORDERED: ENOXAPARIN 40 MG/0.4 ML (LOVENOX) SYR SC SCH (17:22)
[2018-07-16 17:25] LABS: ALANINE AMINOTRANSFERASE 31 U/L (0-55); ALBUMIN 3.8 GM/DL (3.2-4.5); ALKALINE PHOSPHATASE 77 U/L (40-136); BILIRUBIN,TOTAL 0.4 MG/DL (0.1-1.0); BUN/CREATININE RATIO 24; CALCIUM 8.8 MG/DL (8.5-10.1); CARBON DIOXIDE 23 MMOL/L (21-32); CHLORIDE 105 MMOL/L (98-107); CREATININE SERUM 0.83 MG/DL (0.60-1.30); GFR ESTIMATED > 60; GLUCOSE 90 MG/DL (70-105); POTASSIUM 3.4 MMOL/L (3.6-5.0); SODIUM 139 MMOL/L (135-145); TOTAL PROTEIN 6.4 GM/DL (6.4-8.2)
--- NOTE | 2018-07-16 17:53 | Diagnostic Imaging Report ---
INDICATION: Cough and fever. EXAMINATION: PA and lateral chest. FINDINGS: Heart size and pulmonary vascularity are normal. Lungs are clear. There are no effusions or pneumothoraces. IMPRESSION: Negative chest. Dictated by: Dictated on workstation # [id number]
[2018-07-16 19:30] VITALS: BP 125/72
[2018-07-16 20:15] VITALS: BP 125/64
[2018-07-16] MEDS: RT-ALBUTEROL SULF 2.5 MG/3 ML PRE-MIX VIAL INH SCH (20:41)
[2018-07-16] MEDS ORDERED: methylPREDNISolone 40 MG/ML (Solu-MEDROL) VIAL IV ONE (20:45)
[2018-07-16] MEDS: HYDROCODONE/CHLOR 10MG/5 ML (TUSSIONEX SUSP) 5ML UDC PO SCH (22:28)
[2018-07-16] MEDS: PIPERACILLIN SODIUM/TAZOBACTAM 4.5 GM in NS (IVPB) 100 ML IV SCH (22:29)
--- NOTE | 2018-07-16 22:30 | NUR ---
TOOK OVER CARE OF PATIENT FROM PREVIOUS NURSE. AGREE WITH PREVIOUS ASSESSMENT.
[2018-07-16] MEDS: POTASSIUM CHLORIDE INJ 10 MEQ in NS IV 1000 ML 1,000 ML IV SCH (23:05)
[2018-07-17] VITALS: BP 111/63
[2018-07-17 04:00] VITALS: BP 107/57
[2018-07-17] MEDS: methylPREDNISolone 40 MG/ML (Solu-MEDROL) VIAL IV SCH ×2 (05:34→10:46)
[2018-07-17] MEDS: PIPERACILLIN SODIUM/TAZOBACTAM 4.5 GM in NS (IVPB) 100 ML IV SCH ×2 (05:34→12:16)
[2018-07-17 05:54] LABS: BASOPHILS % (AUTO) 0 % (0-10); EOSINOPHILS % (AUTO) 0 % (0-10); HEMATOCRIT 40 % (35-52); HEMOGLOBIN 12.9 G/DL (11.5-16.0); LYMPHOCYTES # (AUTO) 0.9 X 10^3 (1.0-4.0); LYMPHOCYTES % (AUTO) 10 % (12-44); MEAN CORPUSCULAR HEMOGLOBIN 30 PG (25-34); MEAN CORPUSCULAR HGB CONC 33 G/DL (32-36); MEAN CORPUSCULAR VOLUME 92 FL (80-99); MEAN PLATELET VOLUME 10.4 FL (7.4-10.4); MONOCYTES # (AUTO) 0.1 X 10^3 (0.0-1.0); MONOCYTES % (AUTO) 1 % (0-12); NEUTROPHILS # (AUTO) 7.9 X 10^3 (1.8-7.8); NEUTROPHILS % (AUTO) 89 % (42-75); PLATELET COUNT 248 10^3/uL (130-400); RED CELL DISTRIBUTION WIDTH 14.3 % (10.0-14.5); WHITE BLOOD COUNT 8.9 10^3/uL (4.3-11.0)
[2018-07-17 06:08] LABS: ALANINE AMINOTRANSFERASE 31 U/L (0-55); ALBUMIN 3.7 GM/DL (3.2-4.5); ALKALINE PHOSPHATASE 71 U/L (40-136); BILIRUBIN,TOTAL 0.4 MG/DL (0.1-1.0); BUN/CREATININE RATIO 18; CALCIUM 8.3 MG/DL (8.5-10.1); CARBON DIOXIDE 21 MMOL/L (21-32); CHLORIDE 106 MMOL/L (98-107); CREATININE SERUM 0.85 MG/DL (0.60-1.30); GFR ESTIMATED > 60; GLUCOSE 157 MG/DL (70-105); SODIUM 139 MMOL/L (135-145); TOTAL PROTEIN 6.1 GM/DL (6.4-8.2)
[2018-07-17 06:34] LABS: LYMPHOCYTES % (MANUAL) 5 %; MONOCYTES % (MANUAL) 2 %; NEUTROPHILS % (MANUAL) 93 %; RBC MORPH NORMAL
[2018-07-17] MEDS: RT-ALBUTEROL SULF 2.5 MG/3 ML PRE-MIX VIAL INH SCH ×2 (07:47→14:21)
[2018-07-17 08:00] VITALS: BP 113/56
[2018-07-17] MEDS: POTASSIUM CHLORIDE INJ 10 MEQ in NS IV 1000 ML 1,000 ML IV SCH (08:57)
--- NOTE | 2018-07-17 09:15 | Consultation-Cardiology ---
HPI-Cardiology Cardiology Consultation Date of Consultation 07/17/18 Date of Admission Time Seen by Provider: 09:10 Indication: shortness of breath, cough HPI 73 years old lady with history of coronary artery disease and hyperlipidemia. Was in her usual state of health, has been having increasing cough and shortness of breath for the past week, failed oral antibiotic. Admitted for IV antibiotic. Still having some cough productive of sputum. Denied any chest pain. Denied any palpitation. No syncope or near syncopal episodes. No claudication. Had a stress test done on July 15 showing no ischemia or infarction. Home Medications & Allergies Allergies: Coded Allergies: mercury (elemental) (Verified Allergy, Unknown, ALLERGIC TO MERCURY EAR DROPS, 11/14/05) Home Medication List Reviewed: Yes [id number] Hx Patient Social History Marital Status: Employed/Student: retired Alcohol Use: Occasionally Uses Recreational Drug Use: No Recent Foreign Travel: No Recent Hopitalizations: No Physical Abuse Screen: No Sexual Abuse: No Immunizations Up To Date Tetanus Booster (TDap): Less than 5yrs Date of Pneumonia Vaccine: Nov 15, 2013 Date of Influenza Vaccine: Apr 16, 2018 Past Medical History past medical history as described below Family Medical History Significant Family History: Heart Disease, Renal Disease Family History: Alcoholism Alzheimer's disease Arthritis Cancer of mouth Cardiovascular disease Cataracts Completed stroke Coronary thrombosis Diabetes mellitus Glaucoma Hypercholesterolemia Hypertension Myocardial infarction Osteoporosis Respiratory disorder Thyroid disease Visual disorder Review of Systems Constitutional: see HPI, malaise EENTM: see HPI, no symptoms reported Respiratory: see HPI, cough, dyspnea on exertion; No hemoptysis, No orthopnea, No phlegm, No short of breath, No stridor, No wheezing, No other Cardiovascular: see HPI; No chest pain, No edema, No Hx of Intervention, No palpitations, No syncope, No vascular heart diseas, No other Gastrointestinal: no symptoms reported, see HPI Genitourinary: no symptoms reported, see HPI Musculoskeletal: no symptoms reported, see HPI Skin: no symptoms reported, see HPI Psychiatric/Neurological: No Symptoms Reported, See HPI Reviewed Test Results Reviewed Test Results Lab Laboratory Tests Test 07/16/18 16:48 07/17/18 05:25 Range/Units White Blood Count 10.0 8.9 4.3-11.0 10^3/uL Red Blood Count 4.65 4.34 L 4.35-5.85 10^6/uL Hemoglobin 13.8 12.9 11.5-16.0 G/DL Hematocrit 43 40 35-52 % Mean Corpuscular Volume 92 92 80-99 FL Mean Corpuscular Hemoglobin 30 30 25-34 PG Mean Corpuscular Hemoglobin Concent 32 33 32-36 G/DL Red Cell Distribution Width 14.0 14.3 10.0-14.5 % Platelet Count 234 248 130-400 10^3/uL Mean Platelet Volume 10.2 10.4 7.4-10.4 FL Neutrophils (%) (Auto) 55 89 H 42-75 % Lymphocytes (%) (Auto) 26 10 L 12-44 % Monocytes (%) (Auto) 11 1 0-12 % Eosinophils (%) (Auto) 7 0 0-10 % Basophils (%) (Auto) 1 0 0-10 % Neutrophils # (Auto) 5.5 7.9 H 1.8-7.8 X 10^3 Lymphocytes # (Auto) 2.6 0.9 L 1.0-4.0 X 10^3 Monocytes # (Auto) 1.1 H 0.1 0.0-1.0 X 10^3 Eosinophils # (Auto) 0.7 H 0.0 0.0-0.3 10^3/uL Basophils # (Auto) 0.1 0.0 0.0-0.1 10^3/uL Sodium Level 139 139 135-145 MMOL/L Potassium Level 3.4 L 4.0 3.6-5.0 MMOL/L Chloride Level 105 106 98-107 MMOL/L Carbon Dioxide Level 23 21 21-32 MMOL/L Anion Gap 11 12 5-14 MMOL/L Blood Urea Nitrogen 20 H 15 7-18 MG/DL Creatinine 0.83 0.85 0.60-1.30 MG/DL Estimat Glomerular Filtration Rate > 60 > 60 BUN/Creatinine Ratio 24 18 Glucose Level 90 157 H 70-105 MG/DL Lactic Acid Level 0.68 0.50-2.00 MMOL/L Calcium Level 8.8 8.3 L 8.5-10.1 MG/DL Corrected Calcium 9.0 8.5 8.5-10.1 MG/DL Total Bilirubin 0.4 0.4 0.1-1.0 MG/DL Aspartate Amino Transf (AST/SGOT) 27 25 5-34 U/L Alanine Aminotransferase (ALT/SGPT) 31 31 0-55 U/L Alkaline Phosphatase 77 71 40-136 U/L Troponin I < 0.028 <0.028 NG/ML B-Type Natriuretic Peptide 14.5 <100.0 PG/ML Total Protein 6.4 6.1 L 6.4-8.2 GM/DL Albumin 3.8 3.7 3.2-4.5 GM/DL Neutrophils % (Manual) 93 % Lymphocytes % (Manual) 5 % Monocytes % (Manual) 2 % Blood Morphology Comment NORMAL Physical Exam Vital Signs Vital Signs - First Documented 07/16/18 16:25 Temp 99.0 Pulse 66 Resp 18 B/P (MAP) 125/72 (89) Pulse Ox 95 O2 Delivery Room Air Capillary Refill : Height, Weight, BMI Height: 5'1.00" Weight: 153lbs. 0.0oz. [id number]; 28.9 BMI Method:Stated General Appearance: No Apparent Distress, WD/WN Eyes: Bilateral Eye Normal Inspection, Bilateral Eye PERRL, Bilateral Eye EOMI HEENT: PERRL/EOMI, TMs Normal, Normal ENT Inspection, Pharynx Normal Neck: Full Range of Motion, Normal Inspection, Non Tender, Supple, Carotid Bruit Respiratory: Chest Non Tender, Normal Breath Sounds, No Accessory Muscle Use, No Respiratory Distress, Rhonci Cardiovascular: Regular Rate, Rhythm, No Edema, No Gallop, No JVD, No Murmur, Normal Peripheral Pulses Gastrointestinal: Normal Bowel Sounds, No Organomegaly, No Pulsatile Mass, Non Tender, Soft Back: Normal Inspection, No CVA Tenderness, No Vertebral Tenderness Extremity: Normal Capillary Refill, Normal Inspection, Normal Range of Motion, Non Tender, No Calf Tenderness, No Pedal Edema Neurologic/Psychiatric: Alert, Oriented x3, No Motor/Sensory Deficits, Normal Mood/Affect Skin: Normal Color, Warm/Dry Lymphatic: No Adenopathy A/P-Cardiology Admission Diagnosis Cough Coronary artery disease Shortness of breath Hyperlipidemia Assessment/Plan Cough and shortness of breath, failed oral antibiotic, chest x-ray did not show any infiltrate, white count abnormal, probably bronchitis, managed by primary care physician Coronary artery disease, history of stent to the LAD in 2001. Last cardiac catheterization was in April 2012 showing patent stents with no obstructive disease. Stress test was done on July 15, 2018 showing no ischemia or infarction with normal LV function. Continue to monitor Palpitations-has occurred 4 times over the past 6 months, waking her up at night. Reports short episode, no further episodes were reported. Continue to monitor Hypertension, controlled. Currently not on any antihypertensive medication at this time. Hyperlipidemia, controlled, continue to monitor lipids Mild bilateral carotid stenosis, nonobstructive disease, continue to monitor Hypothyroidism, managed and followed by primary care physician Family history of heart disease. Osteoarthritis, history of bilateral hip replacement. History of hysterectomy, cholecystectomy. Status post cataract surgery Clinical Quality Measures DVT/VTE Risk/Contraindication: Risk Factor Score Per Nursin RFS Level Per Nursing on Admit: 3=High AMBER ESCOBAR MD Jul 17, 2018 09:15
[2018-07-17] MEDS ORDERED: ALBU18HF2 INH (09:17)
[2018-07-17] MEDS ORDERED: GABA-488 PO ×2 (09:17)
[2018-07-17] MEDS ORDERED: GUAI5SYR PO (09:17)
[2018-07-17] MEDS ORDERED: DICL75TA2 PO (09:17)
[2018-07-17] MEDS ORDERED: HYDR115S2 PO (09:17)
[2018-07-17] MEDS ORDERED: ASPI-983 PO (09:17)
--- NOTE | 2018-07-17 09:29 | NUR ---
SPOKE WITH THE PATIENT ABOUT HER MEDICATIONS. WE WENT OVER THE EXT MED HX AND SHE VERIFIED HOW SHE TAKES THEM. HER DICLOFENAC WAS FILLED #60 06-27-18 BUT SHE STATES SHE ONLY TAKES 1 AT HS. [facility] FILLED TUSSIONEX LIQUID FOR HER 07-09-18 5ML Q12H PRN #6 OZ. SHE STATES SHE IS SUPPOSED TO USE THE ESTRADIOL TABLET VAGINALLY ONCE WEEKLY HOWEVER SHE FORGETS TO DO IT FREQUENTLY. SHE THINKS SHE USES IT ABOUT ONCE A MONTH. I CALLED [facility] AND VERIFIED IT WAS LAST FILLED #30 03-12-16 ESTRADIOL 0.5MG WEEKLY. OTC MEDS: ROBITUSSIN PRN TYLENOL PRN ASPIRIN 81MG HS CALCIUM 600MG HS VITAMIN D MON AND FRI BENADRYL 25MG HS
[2018-07-17] MEDS: HYDROCODONE/CHLOR 10MG/5 ML (TUSSIONEX SUSP) 5ML UDC PO SCH (09:44)
--- NOTE | 2018-07-17 10:50 | Short Stay Summary-Hospitalist ---
KIMBERLY MONSALVE DO 07/17/18 1050: History of Present Illness HPI/Chief Complaint CC: Cough with fever failed Augmentin and steroids HPI: This is a 73yoWF clinic patient of mine with h/o CAD and hypothyroidism who presented to my office yesterday w/worsening wheezing even after completing 7 days of Augmentin and prednisone and Proair. She was noted to have crackles and low grade fever so she was admitted and placed on pneumonia protocol. CXR was negative for infiltrate and overall she feels much better due to IV steroids. Wheezing is resolved and patient ok with DC. Source: patient Exam Limitations: no limitations Date Seen 07/17/18 Time Seen by a Provider: 10:00 Attending Physician Kimberly Monsalve DO PCP Kimberly Monsalve DO Referring Physician Date of Admission Jul 16, 2018 at 16:30 Home Medications & Allergies Home Medications Reviewed patient Home Medication Reconciliation performed by pharmacy medication reconciliations plating technician and/or nursing. Patients Allergies have been reviewed. Allergies Allergies Coded Allergies mercury (elemental) (Verified Allergy, Unknown, ALLERGIC TO MERCURY EAR DROPS , 11/14/05) Past Hzyiece-Hmysnu-Lfakri Hx Past Med/Social Hx: Reviewed Nursing Past Med/Soc Hx, Reviewed and Corrections made Patient Social History Marrital Status: Employed/Student: retired Alcohol Use: Occasionally Uses Alcohol Beverage of Choice: Wine Recreational Drug Use: No Smoking Status: Never a Smoker Physical Abuse Screen: No Sexual Abuse: No Recent Foreign Travel: No Contact w/other who traveled: No Recent Hopitalizations: No Immunizations Up To Date Tetanus Booster (TDap): Less than 5yrs Date of Pneumonia Vaccine: Nov 15, 2013 Date of Influenza Vaccine: Apr 16, 2018 Seasonal Allergies Seasonal Allergies: Yes Past Medical History Surgeries: Abdominal, Appendectomy, Coronary Stent, Gallbladder, Joint Replacement, Tonsillectomy Currently Using CPAP: No Currently Using BIPAP: No Cardiac: Coronary Artery Disease, High Cholesterol Neurological: Neuropathy Reproductive: No Sexually Transmitted Disease: No HIV/AIDS: No Female Reproductive Disorders: Denies Genitourinary: Kidney Infection, Kidney Stones, UTI-Chronic Gastrointestinal: Gastroesophageal Reflux, Diverticulosis Musculoskeletal: Arthritis, Chronic Back Pain Endocrine: Hypothyroidsim HEENT: Cataract Loss of Vision: Left Hearing Impairment: Denies History of Blood Disorders: No Adverse Reaction to Blood Mims: No Family History Alcoholism Alzheimer's disease Arthritis Cancer of mouth Cardiovascular disease Cataracts Completed stroke Coronary thrombosis Diabetes mellitus Glaucoma Hypercholesterolemia Hypertension Myocardial infarction Osteoporosis Respiratory disorder Thyroid disease Visual disorder Heart Disease, Renal Disease Review of Systems Constitutional: see HPI, dizziness, weakness EENTM: no symptoms reported Respiratory: cough, dyspnea on exertion, short of breath, wheezing Gastrointestinal: no symptoms reported Genitourinary: no symptoms reported Musculoskeletal: no symptoms reported Skin: no symptoms reported Psychiatric/Neurological: No Symptoms Reported All Other Systems Reviewed Negative Unless Noted: Yes Physical Exam Physical Exam Vital Signs Vital Signs - First Documented 07/16/18 16:25 Temp 99.0 Pulse 66 Resp 18 B/P (MAP) 125/72 (89) Pulse Ox 95 O2 Delivery Room Air Capillary Refill : Height, Weight, BMI Height: 5'1.00" Weight: 153lbs. 0.0oz. 69.446703ro; 28.9 BMI Method:Stated General Appearance: No Apparent Distress, WD/WN Eyes: Bilateral Eye Normal Inspection, Bilateral Eye PERRL HEENT: PERRL/EOMI, TMs Normal, Normal ENT Inspection, Pharynx Normal Neck: Full Range of Motion, Normal Inspection, Non Tender, Supple, Carotid Bruit Respiratory: Chest Non Tender, Normal Breath Sounds, No Accessory Muscle Use, No Respiratory Distress, Wheezing Cardiovascular: Regular Rate, Rhythm, No Edema, No Gallop, No JVD, No Murmur, Normal Peripheral Pulses Gastrointestinal: Normal Bowel Sounds, No Organomegaly, No Pulsatile Mass, Non Tender, Soft Back: Normal Inspection, No CVA Tenderness, No Vertebral Tenderness Extremity: Normal Capillary Refill, Normal Inspection, Normal Range of Motion, Non Tender, No Calf Tenderness, No Pedal Edema Neurologic/Psychiatric: Alert, Oriented x3, No Motor/Sensory Deficits, Normal Mood/Affect Skin: Normal Color, Warm/Dry Lymphatic: No Adenopathy Results Results/Procedures Labs Laboratory Tests 07/16/18 16:48 07/17/18 05:25 Patient resulted labs reviewed. Short Stay Diagnosis Discharge Diagnosis-Short Stay Admission Diagnosis Assessment: Acute bronchitis Wheezing failed steroids CAD Final Discharge Diagnosis Assessment: Acute bronchitis Wheezing failed steroids CAD Conclusion Plan Plan: DC home IV steroids Clinical Quality Measures DVT/VTE Risk/Contraindication: Risk Factor Score Per Nursin RFS Level Per Nursing on Admit: 3=High MAKI TORO MEDICAL STUDENT 07/17/18 1200: History of Present Illness HPI/Chief Complaint CC: cough, dyspnea HPI: Pt is a 73 yo white female direct admit from Dr. Monsalve's practice after failure to improve on Augmentin and oral prednisone. She also used a Ventolin inhaler w/o improvement. The pt stated she would feel better in the morning but by the afternoon would have continuous coughing fits and difficulty breathing. She denies fever or chills, CP, or leg swelling. Source: patient Exam Limitations: no limitations Past Tvqmhoh-Rxvmhs-Hfgkco Hx Past Med/Social Hx: Reviewed Nursing Past Med/Soc Hx Patient Social History Marrital Status: Employed/Student: retired Alcohol Use: Occasionally Uses Alcohol Beverage of Choice: Wine Recreational Drug Use: No Physical Abuse Screen: No Sexual Abuse: No Recent Foreign Travel: No Contact w/other who traveled: No Recent Hopitalizations: No Immunizations Up To Date Tetanus Booster (TDap): Less than 5yrs Seasonal Allergies Seasonal Allergies: Yes Past Medical History Surgeries: Abdominal, Appendectomy, Coronary Stent, Gallbladder, Joint Replacement, Tonsillectomy Currently Using CPAP: No Currently Using BIPAP: No Cardiac: Coronary Artery Disease, High Cholesterol Neurological: Neuropathy Reproductive: No Sexually Transmitted Disease: No HIV/AIDS: No Female Reproductive Disorders: Denies Genitourinary: Kidney Infection, Kidney Stones, UTI-Chronic Gastrointestinal: Gastroesophageal Reflux, Diverticulosis Musculoskeletal: Arthritis, Chronic Back Pain Endocrine: Hypothyroidsim HEENT: Cataract Loss of Vision: Left Hearing Impairment: Denies History of Blood Disorders: No Adverse Reaction to Blood Mims: No Family History Alcoholism Alzheimer's disease Arthritis Cancer of mouth Cardiovascular disease Cataracts Completed stroke Coronary thrombosis Diabetes mellitus Glaucoma Hypercholesterolemia Hypertension Myocardial infarction Osteoporosis Respiratory disorder Thyroid disease Visual disorder Heart Disease, Renal Disease Review of Systems Constitutional: No chills, No diaphoresis, No fever; malaise EENTM: No hearing loss, No ear pain, No hoarseness, No nose congestion, No throat pain Respiratory: cough, dyspnea on exertion; No hemoptysis, No phlegm; short of breath; No wheezing Cardiovascular: No chest pain, No edema Gastrointestinal: No abdominal pain, No diarrhea, No vomiting Genitourinary: no symptoms reported Musculoskeletal: no symptoms reported Skin: no symptoms reported Psychiatric/Neurological: No Symptoms Reported Physical Exam Physical Exam General Appearance: No Apparent Distress, WD/WN Eyes: Bilateral Eye PERRL, Bilateral Eye EOMI HEENT: TMs Normal, Pharynx Normal, Moist Mucous Membranes; No Tonsillar Exudate , No Tonsillar Enlargement Neck: Full Range of Motion, Normal Inspection, Non Tender, Supple Respiratory: Chest Non Tender, No Accessory Muscle Use, No Respiratory Distress , Expiration, Rhonci, Wheezing Cardiovascular: Regular Rate, Rhythm, No Edema, No Gallop, No Murmur, Normal Peripheral Pulses Gastrointestinal: Normal Bowel Sounds, No Organomegaly, No Pulsatile Mass, Non Tender, Soft Neurologic/Psychiatric: Alert, Oriented x3, No Motor/Sensory Deficits, Normal Mood/Affect Skin: Normal Color, Warm/Dry Lymphatic: No Adenopathy Results Results/Procedures Imaging: Reviewed Imaging Films, Reviewed Imaging Report Short Stay Diagnosis Discharge Diagnosis-Short Stay Admission Diagnosis Acute bronchitis Final Discharge Diagnosis Acute bronchitis Conclusion Plan Assessment: 1. Acute bronchitis, failed outpatient treatment with Augmentin 2. Hyperlipidemia 3. Hypothyroidism Plan: Pt was treated in hospital w/ IV Zosyn and steroids Cardiology was consulted since pt was just seen for stress test and echo She showed marked improvement after one night She will be discharged home with Cefdinir and oral Prednisone Follow up w/ PCP Dr. Monsalve on Friday07/20/18 Diagnosis/Problems Diagnosis/Problems (1) Bronchitis Status: Acute (2) Hyperlipidemia Status: Chronic (3) Hypothyroidism Status: Chronic KIMBERLY MONSALVE DO Jul 17, 2018 10:50 MAKI TORO MEDICAL STUDENT Jul 17, 2018 12:00
[2018-07-17] MEDS ORDERED: PRED10TA22 PO (10:55)
[2018-07-17] MEDS ORDERED: CEFD300C3 PO (10:55)
[2018-07-17 12:00] VITALS: BP 113/56
--- NOTE | 2018-07-17 13:00 | NUR ---
PEDRO CORRAL demonstrates understanding of discharge instructions and accurately returns instructions upon questioning. Copy of Post-Discharge Instructions and Medication Discharge Instructions given to patient. PEDRO CORRAL is able to manage continuing needs after discharge. Patients belongings returned to patient. Skin dry and intact; no breakdown noted. Patient discharged from [facility] on 07/17/18 at 1300. PEDRO CORRAL left floor ambulating, accompanied by and staff.
[2018-07-17 13:50] VITALS: BP 113/56
[2018-07-17] MEDS ORDERED: AZITHROMYCIN 250 MG TAB (ZITHROMAX) PO SCH (16:00)
== END 2018-07-17 10:55 | disposition home or self-care (01) ==
LOC: 4TH 16:00 → UNDOADMOB 16:30 → UNDODISOB 07-17 13:00
PROVIDERS: ADMIT Internal Medicine; ATTEND Internal Medicine
DX: J20.9 Acute bronchitis, unspecified (principal); E78.5 Hyperlipidemia, unspecified; E03.9 Hypothyroidism, unspecified; I25.10 Atherosclerotic heart disease of native coronary artery without angina pectoris; E78.00 Pure hypercholesterolemia, unspecified; K21.9 Gastro-esophageal reflux disease without esophagitis; K57.30 Diverticulosis of large intestine without perforation or abscess without bleeding; I10 Essential (primary) hypertension; I65.23 Occlusion and stenosis of bilateral carotid arteries; Z96.643 Presence of artificial hip joint, bilateral
CPT/HCPCS: 36415; 71046; 80053; 83605; 83880; 84484; 85007; 85025; 85027; 87040; 87804; 94640; 94760; 99211; G0378

== ENCOUNTER → 2018-12-29 | Outpatient (CLI) | payer OTHER, MEDICARE ==
[~2018-12-29] MED LIST changes: +ALBU18HF2 INH; +ASPI-983 PO; +CEFD300C3 PO; +DICL75TA2 PO; +GUAI5SYR PO; +HYDR115S2 PO; +PRED10TA22 PO
== END ==
LOC: LABNPT 13:51
PROVIDERS: ATTEND Internal Medicine
DX: Z01.89 Encounter for other specified special examinations (principal)
CPT/HCPCS: 85652

== ENCOUNTER → 2021-01-24 | Outpatient (CLI) | payer MEDICARE, OTHER ==
[~2021-01-24] MED LIST changes: -ALEN70TA5 PO; +ALEN70TA80 PO; +ASPI-1238 PO; -ASPI-983 PO; -CALC-6 PO; +CALC1TAB84 PO; +CATHETER FLUSH 10 ML SYR IV PRN; +CYAN-41 PO; -CYAN10006 PO; -INDO25CA15 PO; +INDO25CA99 PO; +REGADENOSON 0.4 MG/5 ML SYR (LEXISCAN) IV ONE; +SIMV40TA25 PO; -SIMV40TA4 PO
[2021-01-24 13:40] VITALS: BP 128/79
--- NOTE | 2021-01-24 17:23 | Cardiology Stress Test Report ---
Stress Test Report Date of Procedure/Referring: Date of Procedure: Jan 24, 2021 Inez Nieves Admitting Physician Kimberly Rodriguez DO Indications: CAD Baseline Heart Rate: 65 Baseline Blood Pressure: Blood Pressure Systolic: 128 Blood Pressure Diastolic: 79 Baseline Vitals Vital Signs Date Time Temp Pulse Resp B/P (MAP) Pulse Ox O2 Delivery O2 Flow Rate FiO2 01/24/21 13:40 88 19 128/79 (95) 98 Room Air Baseline EKG: Baseline EKG: NSR Summary After explaining the procedure to the patient, she signed a consent and then brought to the stress nuclear laboratory. Patient received 0.4 mg Lexiscan for stress test, ECG, heart rate and blood pressure were monitored continuously. Resting and stress dose of radio tracer were injected, imaging was acquired and reviewed in short axis, horizontal long axis and vertical long axis views. TID: 1.36 SSS: 1 SDS: 1 EF: 0 1. Patient tolerated Lexiscan well 2. No significant ischemia or infarction on SPECT images 3. TID 1.36 suggestive of transient ischemic dilatation 4. No gated images were done on this study due to technical difficulties AMBER ESCOBAR MD Jan 24, 2021 17:23
== END ==
LOC: CARD 10:44
PROVIDERS: ATTEND Physician Assistant
DX: I25.10 Atherosclerotic heart disease of native coronary artery without angina pectoris (principal); I10 Essential (primary) hypertension
CPT/HCPCS: 78452; 93017; 93306; A9502

== ENCOUNTER 2021-06-12 07:55 | Outpatient (RCR) | payer MEDICARE, OTHER ==
[~2021-06-12 07:55] MED LIST changes: -CATHETER FLUSH 10 ML SYR IV PRN; +CYCL10TA25 PO; -CYCL10TA9 PO; -REGADENOSON 0.4 MG/5 ML SYR (LEXISCAN) IV ONE
== END 2021-06-15 ==
LOC: CARD 07:55
PROVIDERS: ATTEND Internal Medicine
DX: I69.359 Hemiplegia and hemiparesis following cerebral infarction affecting unspecified side (principal)

== ENCOUNTER → 2021-11-27 | Outpatient (CLI) | payer MEDICARE, OTHER ==
--- NOTE | 2021-11-27 11:52 | Diagnostic Imaging Report ---
INDICATION: Postmenopausal state COMPARISON: 11/15/2010 FINDINGS: AP Spine L1-L4: [BMD (g/cm2): 0.931] [T-Score: -2.2] [Z-Score: -0.3] [BMD Previous: 0.954] [BMD % Change: -2.4] LT Hip Neck: [BMD (g/cm2): N/A] [T-Score: N/A] [Z-Score: N/A] LT Hip Total: [BMD (g/cm2):N/A] [T-Score:N/A] [Z-Score: N/A] [BMD Previous: N/A] [BMD % Change: N/A] RT Hip Neck: [BMD (g/cm2):N/A] [T-Score:N/A] [Z-Score:N/A] RT Hip Total: [BMD (g/cm2):N/A] [T-score:N/A] [Z-Score:N/A] [BMD Previous:N/A] [BMD % Change:N/A] Left forearm: Radius 33% bone mineral density of 0.569 g/sq cm with a T score being negative 3.6. *Indicates significant change from prior examination based on 95% confidence level. World Health Organization criteria for BMD interpretation classify patients as Normal (T-score at or above -1.0), Osteopenic (T-score between -1.0 and -2.5) or Osteoporotic (T-score at or below -2.5). LIMITATIONS AND MODIFICATION: The bilateral hips were not evaluated secondary to postsurgical changes. IMPRESSION: 1. Osteoporosis. 2. No significant change in bone mineral density within the lumbar spine since the prior examination in 2010. This is a baseline examination for the left forearm bone mineral density. 3. See below National Osteoporosis Foundation guidelines on when to potentially initiate pharmacologic therapy. Based on the National Osteoporosis Foundation Guidelines, pharmacologic treatment should be initiated in any of the following, unless clinical conditions suggest otherwise: * Any patient with prior fragility fracture of the hip or vertebrae. A spine fracture indicates 5X risk for subsequent spine fracture and 2X risk for subsequent hip fracture. * Osteoporosis (T-score <-2.5). * Postmenopausal women and men age 50 and older with low bone mass/osteopenia (T-score between -1.0 and -2.5) by DXA and 10-year major osteoporotic fracture greater than 20% or a 10-year probability of hip fracture greater than 3%. These fracture risks are supplied above in the FRAX score, if applicable. * Clinician judgement and/or patient preferences may indicate treatment for people with 10-year fracture probabilities above or below these levels. Dictated by: Dictated on workstation # [id number]
--- NOTE | 2021-11-27 13:14 | Diagnostic Imaging Report ---
INDICATION: Routine screening. COMPARISON: 03/31/2018 and 12/22/2014. TECHNIQUE: 2D and 3D bilateral screening mammography was performed with CAD. FINDINGS: Both breasts are heterogeneously dense, limiting the sensitivity of mammography. A cardiac loop recorder overlies the left axilla. There are scattered benign calcifications in both breasts. No mass or malignant-appearing microcalcifications are identified. The axillae are unremarkable. IMPRESSION: No mammographic features suspicious for malignancy are identified. ACR BI-RADS Category 2: Benign findings. Result letter will be mailed to the patient. Note: At least 10% of breast cancer is not imaged by mammography. Dictated by: Dictated on workstation # [id number]
== END ==
LOC: RAD 11:15
PROVIDERS: ATTEND Internal Medicine
DX: Z12.31 Encounter for screening mammogram for malignant neoplasm of breast (principal); M81.0 Age-related osteoporosis without current pathological fracture; Z78.0 Asymptomatic menopausal state
CPT/HCPCS: 77063; 77067; 77080

== ENCOUNTER 2023-01-29 05:37 | Outpatient (CLI) | payer MEDICARE, OTHER ==
[~2023-01-29] VITALS: Ht 152.4 cm; Wt 61.7 kg
[2023-01-29] MEDS ORDERED: ATOR40TA70 PO (09:45)
[2023-01-29] MEDS ORDERED: GABA-490 PO (09:45)
== END 2023-01-29 09:49 | disposition home or self-care (01) ==
LOC: PREOP 05:37
PROVIDERS: ATTEND Surgery
DX: Z01.818 Encounter for other preprocedural examination (principal)

== ENCOUNTER 2023-02-05 11:07 | Day surgery (SDC) | payer MEDICARE, OTHER ==
[2023-02-05] VITALS (7 sets, daily range): BP systolic 96–113; BP diastolic 53–69
[~2023-02-05] VITALS: Ht 152.4 cm; Wt 61.7 kg
[~2023-02-05 11:07] MED LIST changes: +ATOR40TA70 PO
[2023-02-05] MEDS ORDERED: LACTATED RINGERS 1,000 ML 1,000 ML IV STA (11:16)
[2023-02-05] MEDS ORDERED: LIDOCAINE JELLY 2% 6 ML SYRINGE MM PRN (11:30)
--- NOTE | 2023-02-05 11:48 | Progress Note-Pre Operative ---
Pre-Operative Progress Note Date of Available H&P: Feb 05, 2023 Date H&P Reviewed: Feb 05, 2023 Time H&P Reviewed: 11:30 History & Physical: No changes noted Pre-Operative Diagnosis: hx diverticulitis JOHNNY VALLEJO MD Feb 05, 2023 11:47
--- NOTE | 2023-02-05 11:49 | Discharge Inst-Surgical ---
D/C Lap Instructions-YONI Follow Up Activity as tolerated High Fiber Diet 25g or more per day Avoid Alcohol, Caffeine, Spicy Rosa Sanchez and Acid foods. Drink 64 fluid oz or more of fluids per day. Symptoms to Report: Fever over 101 degree F, Nausea/Vomiting If any problems/questions: Contact your physician or go to Emergency Room JOHNNY VALLEJO MD Feb 05, 2023 11:48
[2023-02-05] MEDS ORDERED: ONDANSETRON 4 MG ORAL DISSOLVE TABLET PO PRN (12:00)
[2023-02-05] MEDS ORDERED: ONDANSETRON INJECTION 4 MG/2 ML (SDV) IVP PRN (12:00)
[2023-02-05] MEDS ORDERED: LIDOCAINE JELLY 2% 6 ML SYRINGE ONE (12:51)
--- NOTE | 2023-02-05 13:31 | Anesthesia-General Post-Op ---
MAC Patient Condition Mental Status/LOC: Same as Preop Cardiovascular: Satisfactory Nausea/Vomiting: Absent Respiratory: Satisfactory Pain: Controlled Complications: Absent Post Op Complications Complications None Follow Up Care/Instructions Patient Instructions None needed. Anesthesiology Discharge Order Discharge Order Patient is doing well, no complaints, stable vital signs, no apparent adverse anesthesia problems. No complications reported per nursing. CHRISTIANO TENA CRNA Feb 05, 2023 13:31
--- NOTE | 2023-02-05 13:50 | Progress Note-Post Operative ---
Post-Operative Progess Note Surgeon (s)/Instrument Mechanic (s) Surgeon JOHNNY VALLEJO MD Instrument Mechanic: none Pre-Operative Diagnosis hx diverticulitis Post-Operative Diagnosis chronic stage 2-3 ext and int hemorrhoids, moderate sigmoid and descending colonic with small area resolving sigmoid diverticulitis, small rectal diverticulosis. Procedure & Operative Findings Date of Procedure 02/05/23 Procedure Performed/Findings colonoscopy with bx. Anesthesia Type mac Estimated Blood Loss Estimated blood loss (mL): minimal Specimens/Packing Specimens Removed rectal polyp JOHNNY VALLEJO MD Feb 05, 2023 13:50
--- NOTE | 2023-02-05 22:01 | OPERATIVE REPORT ---
DATE OF SERVICE: 02/05/2023 ATTENDING PRIMARY CARE PHYSICIAN: Dr. Kimberly Rodriguez. PREOPERATIVE DIAGNOSES: History of sigmoid diverticulitis. POSTOPERATIVE DIAGNOSES: Chronic between stage II and III external and internal hemorrhoids, moderate sigmoid and descending colonic diverticulosis with one small area of sigmoid diverticulitis, which appeared to be healing. Small hyperplastic polyp of the rectum. PROCEDURE: Colonoscopy with biopsy. SURGEON: Johnny Curran MD ANESTHESIA: Monitored anesthesia care. ESTIMATED BLOOD LOSS: Minimal. FINDINGS: Chronic between stage II and III external and internal hemorrhoids, moderate sigmoid and descending colonic diverticulosis with one small area of sigmoid diverticulitis, which appeared to be healing. Small hyperplastic polyp of the rectum. DISPOSITION: The patient tolerated the procedure well. INDICATIONS: The patient is a 77-year-old female known to us. We had done a colonoscopy on her in 2004 and she was found to have diverticulosis. Followup colonoscopy in 2016 did show mild to moderate sigmoid diverticulosis. Approximately 3 weeks ago, she developed left lower quadrant abdominal pain and presented to an outpatient clinic and was found to have urinary tract infection and was started on antibiotics. She states that the pain persisted and became worse and then she went to [facility] Emergency Department where a CT scan was performed, which did show diverticulosis without any signs of diverticulitis at that time. She was started on IV antibiotics and treated as if she did have diverticulitis and she improved and was discharged home. DESCRIPTION OF PROCEDURE: The patient was brought to the endoscopy suite and laid in the left lateral decubitus position. After adequate IV pain and sedative medications and monitored anesthesia care, a digital rectal examination was performed which revealed chronic between stage II and III external and internal hemorrhoids, not actively edematous nor inflamed and no bleeding. Normal sphincter tone was felt and there were no palpable masses. The endoscope was then intubated into the anus and the rectum gently insufflated. The endoscope was then advanced through the valves of [place] of the rectum with a small hyperplastic polyp of the rectum approximately 2 mm in size was identified and this was biopsied and destroyed with forceps and electrocautery with visualization of good hemostasis. The endoscope was then advanced through the sigmoid colon where a moderate sigmoid diverticulosis was identified with a small amount of surrounding colitis around one of the diverticula, likely indicating resolving sigmoid diverticulitis. There were no masses or neoplasms identified within the region. The moderate diverticulosis did extend into the descending colon as well. The endoscope was then advanced to the remainder of the transverse, ascending colon then into the cecum, which were normal. The endoscope was then slowly withdrawn while taking a second look and suctioning of residual air with no additional findings. The patient tolerated the procedure well. We will recommend the necessary lifestyle and dietary accommodation including a high-fiber diet with at least 25 grams of fiber daily as well as significant amounts of water to promote soft consistency stools on a daily basis. If she is able to do this, this will prevent any further propagation of diverticulosis as well as prevent episodes of diverticulitis as well as other complications related to diverticulitis. The polyp was most likely a benign hyperplastic polyp, which did not have any gross malignancy potential confirmed by pathology and she is asymptomatic, she does not need another colonoscopy for another 10 years; however, if she does have recurrent symptoms, we will have her follow up sooner. Job ID: [id number] DocumentID: [id number] Dictated Date: 02/05/2023 13:32:01 Regulatory Coordinator Date: 02/05/2023 21:59:00 Dictated By: JOHNNY CURRAN MD [facility] HOSPITALRobert
== END 2023-02-05 14:42 | disposition home or self-care (01) ==
LOC: ENDO 11:07
PROVIDERS: ATTEND Surgery
DX: K63.5 Polyp of colon (principal); K64.2 Third degree hemorrhoids; K64.4 Residual hemorrhoidal skin tags; K57.30 Diverticulosis of large intestine without perforation or abscess without bleeding; K57.32 Diverticulitis of large intestine without perforation or abscess without bleeding; Z28.310 Unvaccinated for COVID-19; Z80.0 Family history of malignant neoplasm of digestive organs
CPT/HCPCS: 88305

== ENCOUNTER → 2023-04-11 | Outpatient (CLI) | payer MEDICARE, OTHER ==
[~2023-04-11] MED LIST changes: -GABA-490 PO; +GABA-491 PO
--- NOTE | 2023-04-11 12:39 | Diagnostic Imaging Report ---
PROCEDURE: CT urinary tract, rule out kidney stone. TECHNIQUE: Multiple contiguous axial images were obtained through the abdomen and pelvis without the use of intravenous contrast. Auto Exposure Controls were utilized during the CT exam to meet ALARA standards for radiation dose reduction. INDICATION: Diverticulitis. Left lower quadrant abdominal pain. COMPARISON: 07/28/2016. FINDINGS: Included portions of the lung bases are clear. CT ABDOMEN: Normal appendix cannot be adequately identified, but there is no pericecal inflammation. Small bowel loops are nondilated. 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 There is distal colonic diverticulosis, but no convincing evidence of acute diverticulitis. The kidneys, adrenal glands, spleen, pancreas, and liver have an unremarkable noncontrast CT appearance. There is no loculated fluid collection, free fluid, or free air within the abdomen. No abnormal mesenteric or retroperitoneal adenopathy is identified. Osseous structures show no acute abnormalities. CT PELVIS: Again, pelvis is partially obscured due to metallic beam hardening artifact. No calculi are seen within the urinary bladder. There is no loculated fluid collection, free fluid, or free air. No abnormal lymph nodes are seen. Osseous structures show no additional acute abnormalities. IMPRESSION: 1. Portions of the colon are obscured due to metallic beam hardening artifact from bilateral hip prostheses. There is colonic diverticulosis, but no convincing CT evidence of acute diverticulitis. 2. No other acute abnormality is seen within the abdomen or pelvis. Dictated by: Dictated on workstation # [id number]
== END ==
LOC: RAD 11:49
PROVIDERS: ATTEND Nurse Practitioner Family
DX: K57.90 Diverticulosis of intestine, part unspecified, without perforation or abscess without bleeding (principal); K57.32 Diverticulitis of large intestine without perforation or abscess without bleeding; N10 Acute pyelonephritis; R31.29 Other microscopic hematuria
CPT/HCPCS: 74176